=== PATIENT | male | born 1940 | race African-American/Black ===

== ENCOUNTER 2018-12-31 19:31 | Emergency (ER) | payer MEDICARE ==
[~2018-12-31] VITALS: Ht 180.3 cm; Wt 86.4 kg
[2018-12-31 19:40] VITALS: Ht 180.3 cm; Wt 86.4 kg
[2018-12-31] MEDS ORDERED: GLUCOTROL 5 MG T5 MG PO (19:41)
[2018-12-31] MEDS ORDERED: GLUCOPHAGE500 MG PO (19:41)
[2018-12-31] MEDS ORDERED: FUROSEMIDE20 MG PO (19:42)
[2018-12-31] MEDS ORDERED: COZAAR100 MG PO (19:42)
[2018-12-31] MEDS ORDERED: FERROUS SULFAT325 MG PO (19:43)
[2018-12-31] MEDS ORDERED: XARELTO20 MG PO (19:43)
[2018-12-31] MEDS ORDERED: METOPROLOL TART25 MG PO (19:43)
[2018-12-31] MEDS ORDERED: BAYER CHEWABLE81 MG PO (19:43)
[2018-12-31] MEDS ORDERED: VITAMIN D31000 UNIT PO (19:44)
[2018-12-31 21:02] LABS: HEMATOCRIT 25.4 % (42.0-54.0); HEMOGLOBIN 7.9 g/dL (13.5-17.5); MCH 25.6 pg (26.0-34.0); MCHC 31.1 g/dL (31.0-37.0); MCV 82.5 fL (80.0-100.0); MEAN PLATELET VOLUME 9.2 fL (7.4-10.4); PLATELET COUNT 207 10x3/uL (130-400); RBC 3.08 10x6/uL (4.20-6.10); WBC 4.1 10x3/uL (4.8-10.8)
[2018-12-31 21:06] LABS: INR 2.22 (0.85-1.17)
[2018-12-31 21:13] LABS: ALBUMIN 3.7 g/dL (3.4-5.0); ALKALINE PHOSPHATASE 155 U/L (46-116); ALT (SGPT) 52 U/L (10-68); BILIRUBIN - TOTAL 0.31 mg/dL (0.2-1.3); CALC OSMOLALITY 292 mosm/kg (275-300); CALCIUM 9.9 mg/dL (8.5-10.1); CHLORIDE - SERUM 107 mmol/L (98-107); CREATININE - SERUM 1.3 mg/dL (0.6-1.3); GLUCOSE 199 mg/dL (74-106); POTASSIUM - SERUM 3.8 mmol/L (3.5-5.1); PROTEIN - SERUM 6.4 g/dL (6.4-8.2); SODIUM 143 mmol/L (136-145); UREA NITROGEN 17 mg/dL (7-18); eGFR NON AFRICAN AMERICAN 57 mL/min (90-120)
[2018-12-31 21:29] LABS: CKMB 1.8 U/L (0.0-3.6); CREATINE KINASE 138 UL (21-232); PRO BNP 4017 pg/mL (0-450)
[2018-12-31 21:34] LABS: TROPONIN-I 0.061 ng/mL (0.000-0.060)
[2018-12-31 21:36] LABS: EOSINOPHILS 11 % (0-7); LYMPHOCYTES 27 % (15-50); NEUTROPHILS 62 % (40-80); PLATELET ESTIMATE NORMAL
[2019-01-01 00:10] LABS: IRON 35 ug/dl (35-150)
[2019-01-01 00:11] LABS: % SATURATION 11 % (15-55); TOTAL IRON BIND CAPACITY 304 ug/dl (260-445); UNSAT IRON BIND CAPACITY 269 ug/dl (150-375)
[2019-01-01 00:16] VITALS: BP 123/82
[2019-01-01 01:18] LABS: HEMATOCRIT 18.2 % (42.0-54.0); HEMOGLOBIN 5.6 g/dL (13.5-17.5)
== END 2019-01-01 00:50 | disposition other institution (70) ==
LOC: D.ER 19:31
PROVIDERS: Family Medicine
DX: R06.09 Other forms of dyspnea (principal); Z79.01 Long term (current) use of anticoagulants; E11.9 Type 2 diabetes mellitus without complications; Z86.79 Personal history of other diseases of the circulatory system; I10 Essential (primary) hypertension

== ENCOUNTER → 2019-01-11 13:00 | Outpatient (CLI) | payer MEDICARE ==
[2018-12-31 19:40] VITALS: BMI 26.5
[~2019-01-11 13:00] MED LIST: BAYER CHEWABLE81 MG PO; COZAAR100 MG PO; FERROUS SULFAT325 MG PO; FUROSEMIDE20 MG PO; GLUCOPHAGE500 MG PO; GLUCOTROL 5 MG T5 MG PO; METOPROLOL TART25 MG PO; VITAMIN D31000 UNIT PO; XARELTO20 MG PO
--- NOTE | 2019-01-13 08:12 | EC ---
PATIENT:NATY COLIN JR DATE OF SERVICE: 01/11/19 SEX: M MEDICAL RECORD: [id number] DATE OF : 44 LOCATION:[facility], [facility]IN [facility] AGE OF PATIENT: 78 ADMISSION DATE: 01/11/19 REFERRING PHYSICIAN: INTERPRETING PHYSICIAN: FRANCOISE WALLER MD ECHOCARDIOGRAM REPORT ECHO CHARGES 4 ECHO COMPLETE Date: 01/11/19 CLINICAL DIAGNOSIS: HEART MURMUR ECHOCARDIOGRAPHIC MEASUREMENTS (adult normal given) AC root (d.<3.7cm) 4.0 cm LV Septum d (<1.2 cm> 1.8 cm Valve Excursion 2.1 cm LV Septum (systole) 2.0 cm Left Atria (s.<4.0cm> 4.1 cm LVPW d(<1.2cm) 2.0 cm RV (d.<2.3cm) 3.8 cm LVPW (sytole) 2.4 cm LV diastole(<5.6CM) 4.5 cm MV E-F(>70mm/sec) cm LV systole 2.7 cm LVOT Diameter 1.9 cm MV exc.(>10mm) 1.5 cm Est.ejection fraction (50-75%) % DOPPLER: LVIT cm/sec A 53.0 cm/sec E 149 cm/sec LA cm/sec RVSP 45 mmHg LVOT 99 cm/sec AOP1/2T m/s Asc. Ao 116 cm/sec RVOT 93 cm/sec RA cm/sec PA 104 cm/sec AV Gradient Peak 8.49 mmHg AV Mean 4.11 mmHg AV Area 1.9 cm MV Gradient Peak 12.26mmHg MV Mean 3.86 mmHg MV Area cm COMMENTS: [facility] Administrator: 2 HIRO HERNANDEZ Mortgage Operations Manager: 3 Dr. Spencer TAPE# PACS Pericardial Effusion N DATE OF SERVICE: Adequate 2D, color flow imaging, spectral Doppler, and M-mode. LVH is present. LV internal dimension is normal. Wall motion is normal. EF is greater than or equal to 55%. Aortic valve is tricuspid. There is no evidence of stenosis by Doppler interrogation. Left atrium is minimally dilated at 4.1 cm. Mitral valve shows no prolapse. Trace MR. Right-sided chambers grossly normal. Mild TR. ECHOCARDIOGRAM REPORT [id number] NATY COLIN JR TRANSINT:[id number] Voice Confirmation ID: [id number] DOCUMENT ID: [id number] FRANCOISE WALLER MD at 0812 CC: [id number] DICTATION DATE: 01/12/19 1334 SUPERVISOR BUFFING AND PASTING: 01/12/19 2223 DEP CLI 01/11/19 [place] [id number] [place] [id number]
== END | disposition home or self-care (01) ==
LOC: D.HCCECHO 13:00
PROVIDERS: ATTEND Internal Medicine Interventional Cardiology
DX: R01.1 Cardiac murmur, unspecified (principal)

== ENCOUNTER → 2019-01-17 08:26 | Outpatient (CLI) | payer MEDICARE ==
[2018-12-31 19:40] VITALS: BMI 26.5
--- NOTE | 2019-01-25 13:38 | ST ---
PATIENT:NATY COLIN JR MEDICAL RECORD: [id number] SEX: M LOCATION:[facility] ORDER #: ADMISSION DATE: 01/17/19 AGE OF PATIENT: 78 REFERRING PHYSICIAN: INTERPRETING PHYSICIAN: PALMER KIDD MD DATE OF SERVICE: 01/17/2019 PROCEDURE: Nuclear stress test. INDICATION: Angina, hypertension, hyperlipidemia, and diabetes. He was exercised on standard Lexiscan protocol with 27 mCi of sestamibi injected at peak stress, 9 mCi were used previously for rest images. FINDINGS: Gated SPECT reveals a decreased ejection fraction at 40% with mild LV dilatation. SPECT imaging: Cardiolite was used as myocardial perfusion agent. There is reversibility inferiorly and laterally. This includes the basal, mid, apical and inferior segments as well as apical lateral, mid lateral, basal lateral segments. Degree of reversibility inferiorly is moderate, the degree of reversibility laterally is mild. The amount of myocardium involved between defects is large. OVERALL IMPRESSION: This is a high risk nuclear stress test, reversible ischemia inferiorly as well as laterally with decreased ejection fraction 40%, suggestive of multivessel hemodynamically significant coronary artery disease. TRANSINT:[id number] Voice Confirmation ID: [id number] DOCUMENT ID: [id number] PALMER KIDD MD at 1338 CC: [id number] DICTATION DATE: 01/18/19 171 APPLE TURNER: 01/19/19 0055 DEP CLI 01/17/19 [facility] [address] [place] [address]
== END | disposition home or self-care (01) ==
LOC: D.HCCARDIO 08:26
PROVIDERS: ATTEND Internal Medicine Interventional Cardiology
DX: I20.9 Angina pectoris, unspecified (principal)

== ENCOUNTER 2019-02-09 11:19 | Outpatient (CLI) | payer MEDICARE ==
[~2019-02-09] VITALS: Ht 180.3 cm; Wt 85.0 kg
--- NOTE | ~2019-02-09 | HEMODYNAMI ---
PATIENT:NATY COLIN JR MEDICAL RECORD: [id number] : 44 LOCATION:D.CAT ADMISSION DATE: 02/09/19 Generatedon:02/09/201914:48 Patient name: NATY COLIN Patient #: [id number] SSN: [id number] : 1940 Date of study: 02/09/2019 Page: Of Hemodynamic Procedure Report Patient Data Patient Demographics Procedure consent was obtained First Name: NATY Gender: Male Last Name: DIXIE Suffix: [facility] Initial: ESTELITA : 1940 Patient #: [id number] Age: 78 year(s) Race: Black SSN: [id number] Additional ID: [id number] Contact details Address: [address] [place] [address] [address] State: [place] City: [place] Zip code: [address] Past Medical History Allergies: No known allergies Admission Admission Data Admission Date: 02/09/2019 Admission Time: 11:19 Arrival Date: 02/09/2019 Arrival Time: 0:00 Admit Source: Other Insurance Payor: Medicare [facility] #: [id number] Height (in.): 71 BSA: 2.04 (m2) Height (cm.): 180.34 BMI: 25.66 (kg/m2) Weight (lbs.): 184 Weight (kg.): 83.46 Lab Results Lab Result Date: 02/09/2019 Lab Result Time: 0:00 Biochemistry Name Units Result Min Max BUN mg/dl 15 --(--*-)-- 7 18 Creatinine mg/dl 1.1 --(--*-)-- 0.6 1.3 eGFR ml/min 84 -*(----)-- 90 120 AM CBC Name Units Result Min Max Hematocrit % 32.7 *-(----)-- 42 54 Hemoglobin g/dl 10 *-(----)-- 13.5 17.5 Procedure Procedure Types Cath Procedure Diagnostic Procedure C LHC w/Coronaries Sedation Charges Moderate Sedation up to 30 minutes PCI Procedure Coronary Stent Coronary Stent Initial Procedure Description Procedure Date Procedure Date: 02/09/2019 Procedure Start Time: 14:08 Procedure End Time: 14:42 Procedure Staff Name Function Juan David Ireland MD Performing Physician Bebe Maldonado RT Monitor Karen Brito RT Monitor Jennifer Duggan RN Nurse Yuri Haskins RT Scrub Kira Singh RT Scrub Indication Angina Procedure Data Cath Procedure Fluoroscopy Diagnostic fluoroscopy Total fluoroscopy Time: 6.6 time: 6.6 min min Diagnostic fluoroscopy Total fluoroscopy dose: 770 dose: 770 mGy mGy Contrast Material Contrast Material Type Amount (ml) Isovue 300 106 Entry Location Entry Primary Successful Side Size Upsize Upsize Entry Closure Succes sful Closure Location (Fr) 1 (Fr) 2 (Fr) Remarks Device Remarks Radial Right 6 Fr artery Short Femoral Right 5 Fr 6 Fr Exoseal artery Short Estimated blood loss: 10 ml Diagnostic catheters Device Type Used For End Catheter Placement DIAGNOSTIC [place] 110cm 5 Procedure Fr catheter ([id number]) MULTIPACK JL 4.0 5Fr Procedure catheter MULTIPACK 3DRC 5Fr Procedure catheter MULTIPACK Pigtail 5 Fr Procedure catheter Procedure Complications No complications Procedure Medications Medication Administration Route Dosage Oxygen etCO2 Nasal cannula 2 l/min Lidocaine 2% added to field 20 Heparin Flush Bag added to field 2 bags (1000units/500ml NS) 0.9% NaCl I.V. 100 ml/hr Versed I.V. 1 mg Fentanyl I.V. 50 mcg Radial Cocktail I.A. 1 syringe (Verapamil 2mg/Nitro 400mcg/Heparin 1500units) Versed I.V. 1 mg Fentanyl I.V. 50 mcg Versed I.V. 1 mg Heparin Bolus I.V. 4000 units Integrilin (Bolus I.V. 7.9 ml 2mg/ml) Plavix P.O. 600 mg Hemodynamics Rest BSA: 2.04 (m2) HGB: 10 (g/dl) O2 Consumption: Estimated: 242.34 (ml/min) O2 Cons umption indexed: Estimated:118.79 (ml/min/m) Heart Rate: 81 (bpm) Pressure Samples Time Site Value (mmHg) Purpose Heart Use Rate(bpm) 14:22 LV 112/15,28 Snapshot 77 Gradients Valve Time Site Site Mean SEP/DFP Peak To Heart Use 1 2 (mmHg) (sec/min) Peak Rate (mmHg) (bpm) Aortic 14:23 LV AO 77 Snapshots Pre Cath Intra NCS Post Cath Vital Signs Time Heart Resp SPO2 etCO2 NIBP (mmHg) Rhythm Pain Sedation Rate (ipm) (%) (mmHg) Status Level (bpm) 13:55:48 79 17 100 0 130/81(105) NSR 0 (11) 10(A) , No pain 13:59:59 80 13 97 0 121/78(93) NSR 0 (11) 10(A) , No pain 14:04:12 78 12 98 0 123/77(102) NSR 0 (11) 10(A) , No pain 14:08:21 79 14 97 0 134/85(102) NSR 0 (11) 9(A) , No pain 14:12:33 79 12 97 0 127/74(91) NSR 0 (11) 9(A) , No pain 14:16:41 79 12 97 0 114/77(94) NSR 0 (11) 9(A) , No pain 14:20:53 77 13 97 0 113/69(91) NSR 0 (11) 9(A) , No pain 14:25:01 78 13 98 0 111/75(90) NSR 0 (11) 9(A) , No pain 14:29:11 77 13 98 0 113/72(97) NSR 0 (11) 9(A) , No pain 14:33:21 77 14 98 0 115/71(90) NSR 0 (11) 9(A) , No pain 14:37:30 75 14 99 0 112/69(89) NSR 0 (11) 10(A) , No pain 14:41:38 77 13 98 0 112/76(91) NSR 0 (11) 9(A) , No pain Medications Time Medication Route Dose Verified Delivered Reason Not es Effectiveness by by 14:01:04 Oxygen etCO2 2 l/min Juan David Rodriguez [facility]ula 14:01:10 Lidocaine 2% added 20ml Juan David Fall for local to vial [facility] anesthetic field MD PORTER 14:01:19 Heparin Flush added 2 bags Juan David Fall used for Bag to [facility] procedure (1000units/500ml field MD PORTER NS) 14:01:28 0.9% NaCl I.V. 100 Juan David Rodriguez Per physician ml/hr St Gael Duggan RN, MD 14:03:28 Versed I.V. 1 mg Juan David Rodriguez for sedation St Gael Duggan RN, MD 14:03:33 Fentanyl I.V. 50 mcg Juan David Rodriguez for sedation St Gael Duggan RN, MD 14:08:28 Versed I.V. 1 mg Juan David Rodriguez for sedation St Gael Duggan RN, MD 14:08:32 Fentanyl I.V. 50 mcg Juan David Rodriguez for sedation St Gael Duggan RN, MD 14:10:23 Radial Cocktail I.A. 1 Juan David Fangie for (Verapamil syringe St Gael Duggan RN vasodilation 2mg/Nitro MD 400mcg/Heparin 1500units) 14:11:47 Versed I.V. 1 mg Juan David Rodriguez for sedation St Gael Duggan RN, MD 14:25:25 Heparin Bolus I.V. 4000 Juan David Rodriguez for isabelle ified units St Gael Duggan RN anticoagulation with dr MD muniz 14:26:42 Integrilin I.V. 7.9 ml Juan David Rodriguez for was mellisa (Bolus 2mg/ml) St Gael Duggan RN antiplatelet 2.1 mls therapy of vial 14:39:19 Plavix P.O. 600 mg Juan David Rodriguez for St Gael Duggan RN antiplatelet therapy Procedure Log Time Note 13:36:49 Jennifer Duggan RN sent for patient. Start room use. 13:36:55 Procedure Status Elective Heart Cath (OP). 13:36:58 Time tracking: Regular hours (M-F 7:00 - 5:00) 13:37:03 Plan of Care:Hemodynamics will remain stable., Cardiac rhythm will remain stable., Comfort level will be maintained., Respiratory function will remain adequate., Patient/ family verbilizes understanding of procedure., Procedure tolerated without complication., Recovers from procedure without complications.. 13:37:09 Signed procedure consent form obtained from patient. 13:37:31 H&P Date Dictated: 02/03/2019 Within 30 days and on chart., H&P Addendum completed by physician on day of procedure. (MUST COMPLETE FOR ALL OUTPATIENTS). 13:37:46 Patient allergic to No known allergies 13:42:10 ACCPatient has been prescribed/administered the following anti-anginal medication within the last 2 weeks: Beta Brisa 13:42:17 ACC Patient presents with Stable Angina CCS Anginal Class 3--Marked limitation of physical activity, angina occurs with ordinary activity.. 13:42:42 Patient Height : 71 inches 13:42:46 Patient Weight : 184 lbs 13:42:53 Insurance Payor : Medicare 13:42:55 Arrival Date: 02/09/2019 12:00:00 AM 13:43:09 Admit Source: Other 13:43:22 Diagnostic Cath Status : Elective 13:43:48 Indication : Angina 13:44:37 Patient received from Pre/Post Procedure Room to CCL 1 Alert and oriented. Tansferred to table in Supine position. 13:44:39 Warm blankets applied, and adriana hugger turned on for patient comfort. 13:44:39 Correct patient and procedure confirmed by team. 13:44:42 ECG and BP/O2 sat monitors applied to patient. 13:54:41 Vital chart was started 13:54:43 Baseline sample Acquired. 13:54:50 Rhythm: sinus rhythm 13:54:52 Full Disclosure recording started 13:54:56 Pre-procedure instructions explained to patient. 13:54:59 Pre-op teaching completed and patient verbalized understanding. 13:55:06 Family in waiting room. 13:55:09 Patient NPO since Midnight. 13:55:13 Is the patient allergic to Iodine/contrast media? No. 13:55:18 Is patient on blood thinner?Yes 13:55:25 ACC The patient was administered the following blood thiners within the last 24 hours: Xarelto 13:56:04 Patient diabetic? Yes. 13:56:14 If on Metformin: Last Dose? 02/07/2019 13:56:17 If diabetic: On Metformin? Yes 13:56:24 Previous problem with sedation/anesthesia? No ? 13:56:28 Snore? Yes 13:56:35 Sleep apnea? No 13:56:37 Deviated septum? No 13:56:39 Opens mouth fully? Yes 13:56:41 Sticks out tongue? Yes 13:56:49 Airway obstruction? Yes asthma 13:56:55 Dentures? No ? 13:57:56 Pre procedure: right dorsailis pedis pulse 2+ Normal; easily identifiable; not easily obliterated 13:58:07 Modified Angel's test Ulnar < 7 seconds 13:58:13 Patient pain scale 0/10 ?. 13:58:29 IV patent on arrival in right antecubital with 0.9% NaCl at [facility]. 14:00:07 Lab Result : BUN 15 mg/dl 14:00:08 Lab Result : Creatinine 1.1 mg/dl 14:00:08 Lab Result : Hemoglobin 10 g/dl 14:00:08 Lab Result : eGFR AM 84 ml/min 14:00:08 Lab Result : Hematocrit 32.7 % 14:00:10 Lab results completed and on chart. 14:00:14 Right Radial & Right Groin area was prepped with chlora-prep and draped in sterile fashion 14:00:16 Alarms reviewed by R. N. 14:00:16 Sharps counted by scrub and verified by R.N. 14:00:33 Use device set Radial Dx or PCI 14:00:40 ACIST Syringe (14139) opened to sterile field. 14:00:41 Medline Cath Pack ([id number]) opened to sterile field. 14:00:42 Bag Decanter (2002S) opened to sterile field. 14:00:43 ACIST Hand Control (74925) opened to sterile field. 14:00:44 ACIST Manifold (16947) opened to sterile field. 14:00:45 Tegaderm 4 x 4 (1626W) opened to sterile field. 14:00:49 MBrace Wrist Support ([id number]) opened to sterile field. 14:00:52 EMERALD Guide Wire (291-989) opened to sterile field. 14:00:54 SHEATH 6FR RAIN (3160027) opened to sterile field. 14:01:04 Oxygen 2 l/min etCO2 Nasal cannula was administered by Jennifer Duggan RN; used for procedure; Verbal order read back and verified. 14:01:10 Lidocaine 2% 20ml vial added to field was administered by Juan David Ireland MD; for local anesthetic; Verbal order read back and verified. 14:01:19 Heparin Flush Bag (1000units/500ml NS) 2 bags added to field was administered by Juan David Ireland MD; used for procedure; Verbal order read back and verified. 14:01:28 0.9% NaCl 100 ml/hr I.V. was administered by Jennifer Duggan RN; Per physician; Verbal order read back and verified. 14:02:29 Baseline sample Acquired. 14:02:42 --------ALL STOP TIME OUT------ 14:02:43 Final Timeout: patient, procedure, and site verified with staff and physician. All members of the team are in agreement. 14:02:50 Right Radial & Right Groin site verified by team. 14:02:59 Fire Safety Assessment: A--An alcohol-based skin anteseptic being used preoperatively., C--Open oxygen or nitrous oxide is being used., D--An ESU, laser, or fiber-optic light is being used. 14:03:11 Physical assessment completed. ASA score P 2 - A patient with mild systemic disease as per Juan David Ireland MD. 14:03:17 2) 60-89 Mildly reduced kidney function, and other findings (as for stage 1) point to kidney disease. 14:03:22 Maximum allowable contrast dose (3.7 X eGFR X 0.75)236 ml. 14:03:28 Versed 1 mg I.V. was administered by Jennifer Duggan RN; for sedation; Verbal order read back and verified. 14:03:30 Sedation plan: IV Moderate Sedation Medication:Versed, Fentanyl 14:03:33 Fentanyl 50 mcg I.V. was administered by Jennifer Duggan RN; for sedation; Verbal order read back and verified. 14:08:08 Procedure started. 14:08:20 Local anesthetic to right radial artery with Lidocaine 2% by Juan David Ireland MD.INITIAL ACCESS ONLY 14:08:28 Versed 1 mg I.V. was administered by Jennifer Duggan RN; for sedation; Verbal order read back and verified. 14:08:32 Fentanyl 50 mcg I.V. was administered by Jennifer Duggan RN; for sedation; Verbal order read back and verified. 14:08:53 A 6 Fr Short sheath was inserted into the Right Radial artery 14:09:05 Zero performed for pressure channel P1 14:09:10 Zero performed for pressure channel P1 14:09:41 A DIAGNOSTIC [place] 110cm 5 Fr catheter (514453) was advanced over the wire and used for Procedure. 14:09:45 Zero performed for pressure channel P1 14:10:23 Radial Cocktail (Verapamil 2mg/Nitro 400mcg/Heparin 1500units) 1 syringe I.A. was administered by Buffie Duggan RN; for vasodilation; Verbal order read back and verified. 14:11:47 Versed 1 mg I.V. was administered by Jennifer Duggan RN; for sedation; Verbal order read back and verified. 14:12:54 GLIDE WIRE ANGLE 260cm (JV8196) opened to sterile field. 14:13:16 Mascot wire used to advance catheter 14:14:30 Unable to go radial. Proceed with groin 14:15:04 SHEATH 5FR [place] (IAP285) opened to sterile field. 14:15:14 Use device set Multipack Set 14:15:20 DIAGNOSTIC Multipack 5Fr catheter set ([id number]) opened to sterile field. 14:15:35 Local anesthetic to right femoral artery with Lidocaine 2% by Juan David Ireland MD.ADDITIONAL ACCESS 14:16:18 A 5 Fr sheath was inserted into the Right Femoral artery 14:17:11 A MULTIPACK JL 4.0 5Fr catheter was advanced over the wire and used for Procedure. 14:18:42 LCA angiography performed. 14:19:18 Catheter removed. 14:19:26 A MULTIPACK 3DRC 5Fr catheter was advanced over the wire and used for Procedure. 14:21:02 RCA angiography performed. 14:21:06 Catheter removed. 14:21:16 A MULTIPACK Pigtail 5 Fr catheter was advanced over the wire and used for Procedure. 14:22:01 LV gram done using POPE 14:22:08 Injector settings: Ml/sec: 10, Volume: 20, 14:22:34 LV hemodynamics recorded. 14:22:57 EF : 55 % 14:23:47 SHEATH 6FR [place] (SJA028) opened to sterile field. 14:23:48 WHISPER 300cm guide wire ([id number]) opened to sterile field. 14:23:49 INFLATOR Merit BasixCompak (OB0536) opened to sterile field. 14:23:50 GUIDE 6FR XBLAD 3.5 catheter ([id number]) opened to sterile field. 14:24:20 Sheath upsized to a 6 Fr Short. 14:24:48 6 Fr xblad 3.5 guide catheter was inserted over the wire 14:25:25 Heparin Bolus 4000 units I.V. was administered by Jennifer Duggan RN; for anticoagulation; verified with dr muniz Verbal order read back and verified. 14:25:54 Guide Catheter removed. unable to cannulate vessel. 14:26:11 GUIDE 6FR JL 4.0 catheter (FB3OT62) opened to sterile field. 14:26:36 6 Fr JL4 guide catheter was inserted over the wire 14:26:42 Integrilin (Bolus 2mg/ml) 7.9 ml I.V. was administered by Jennifer Duggan RN; for antiplatelet therapy; wasted 2.1 mls of vial Verbal order read back and verified. 14:27:11 Guide Catheter removed. unable to cannulate vessel. 14:27:31 GUIDE 6FR XBLAD 4.0 catheter ([id number]) opened to sterile field. 14:27:50 6 Fr xblad 4 guide catheter was inserted over the wire 14:30:18 Pre PCI Site: [place] mLAD has 80% stenosis. 14:30:53 whisper 300 wire advanced. 14:32:20 Wire advanced across lesion. 14:34:47 Place stent Inflation Number: 1 A CRISTY RX 3.5 x 18 stent ([id number]) was prepped and advanced across the Mid LAD . The stent was deployed at 14 GEMMA for 0:15 (min:sec) . 14:35:18 Stent catheter was removed intact over wire. 14:35:26 Wire removed. 14:35:27 Guide catheter removed. 14:35:48 EXOSEAL 6Fr (EX600) opened to sterile field. 14:35:50 ZEPHYR REGULAR TR BAND (083620) opened to sterile field. 14:36:14 Sheath removed intact; hemostasis achieved with Exoseal to the Right Femoral artery. 14:36:18 Procedure ended.(Physican Out) 14:36:37 Fluoroscopy time 06.60 minutes. 14:36:42 Fluoroscopy dose: 770 mGy 14:36:42 Flurop Dose total: 770 14:36:47 Dose Area Product 99844 mGy/cm. 14:36:51 Contrast amount:Isovue 300 106ml. 14:36:54 Maximum allowable dose exceeded? No. 14:36:56 Sharps counted by scrub and verified by R.N. 14:37:14 Post-op/insertion site Right Femoral artery dressed using a 4 x 4 and Tegaderm. 14:37:51 Calvert band inflated with 10cc of air. 14:38:11 Post-procedure physical assessment completed. ASA score P 2 - A patient with mild systemic disease as per Juan David Ireland MD. 14:38:16 Post procedure rhythm: unchanged. 14:38:20 Estimated blood loss: 10 ml 14:38:22 Post procedure instruction explained to patient.Patient verbalizes understanding. 14:38:24 Patient needs reinforcement of post procedure teaching. 14:39:19 Plavix 600 mg P.O. was administered by Jennifer Duggan RN; for antiplatelet therapy; Verbal order read back and verified. 14:39:54 Procedure type changed to Cath procedure, Diagnostic procedure, LHC, LHC w/Coronaries, Sedation Charges, Moderate Sedation up to 30 minutes, PCI procedure, Coronary Stent, Coronary Stent Initial 14:42:25 Procedure and supply charges have been captured, reviewed, submitted and are correct. 14:42:34 Procedure Complication : No complications 14:42:37 Vital chart was stopped 14:42:40 Operative report dictated upon procedure completion. 14:42:41 See physician's report for complete and final results. 14:42:44 Report given to Pre/Post Procedure Room. 14:42:50 Patient transfered to Pre/Post Procedure Room with Stretcher. 14:42:55 Procedure ended. 14:42:55 Full Disclosure recording stopped 14:43:04 ACC-PCI Only Patient was given prescriptions, or instructed by Juan David Ireland MD to start/continue the following medications upon discharge: Plavix 14:43:06 End room use (Document Last) Intervention Summary Intervention Notes Time ActionType Lesion and Equipment Used Action# Pressure Duration Attributes 14:34:47 Place stent Mid LAD CRISTY RX 3.5 x 1 14 00:15 18 stent ([id number]) Device Usage Item Name Manufacture Quantity Catalog Hospital Part Current [facility] Lot# / Number Charge Number Stock Stock Serial# Code ACIST Syringe Acist 1 88547 158524 483244 191808 20 (50867) Medical Systems Inc Medline Cath Medline 1 [id number] 651375 55965 874525 5 Pack ([id number]) Bag Decanter Microtek 1 2001S 535462 09147 237977 5 () Medical Inc. ACIST Hand Acist 1 78253 264689 874138 856242 5 Control Medical (02359) Systems Inc ACIST Manifold Acist 1 91668 953043 305732 090090 5 (25843) Medical Systems Inc Tegaderm 4 x 4 3M 1 1626W 696282 596581 023734 5 (1626W) MBrace Wrist Advanced 1 140-0250-00 504538 42934 934154 5 Support Vascular ([id number]) Dynamics EMERALD Guide Cardinal 1 502-455 522472 497544 877711 5 Wire (502-455) Health SHEATH 6FR Cardinal 1 3261232 360943 9468535 458997 5 RAIN (1847486) Health DIAGNOSTIC Terumo 1 40-5013 079765 723518 123057 5 [place] 110cm 5 Fr catheter (746330) GLIDE WIRE Terumo 1 KK0263 464332 772093 345851 5 ANGLE 260cm (IX7508) SHEATH 5FR Terumo 1 JLE070 503767 384341 502263 5 [place] (QNP856) DIAGNOSTIC Cardinal 1 JV1917 127273 27818 335992 30 Multipack 5Fr Health catheter set (VO1410) MULTIPACK JL Cardinal 1 690038 5 4.0 5Fr Health catheter MULTIPACK 3DRC Cardinal 1 085893 5 5Fr catheter Health MULTIPACK Cardinal 1 828960 5 Pigtail 5 Fr Health catheter SHEATH 6FR Terumo 1 NYD316 312657 333045 990412 40 [place] (MEB604) WHISPER 300cm [place] 1 [id number] 435791 381616 261237 5 guide wire Vascular (1491585AP) INFLATOR Merit Merit 1 [id number] 498306 473532 441995 15 [employer]ndAllon [employer] Medical (MS1521) GUIDE 6FR Cardinal 1 [id number] 235029 745172 461286 10 XBLAD 3.5 Health catheter (60191825) GUIDE 6FR JL Medtronic 1 [id number] 757666 56428 598763 1 4.0 catheter (JZ8JR85) GUIDE 6FR Cardinal 1 93006912 640293 238863 115900 3 XBLAD 4.0 Health catheter (54855156) CRISTY RX 3.5 x Medtronic 1 [id number] 244204 5655886 846104 5 [id number] 18 stent ([id number]) EXOSEAL 6Fr Cardinal 1 EX600 811496 371447 154796 10 (EX600) Health ZEPHYR REGULAR Cardinal 1 259507 874504 3899805 817296 5 TR [facility] [employer] (148636) Signature Audit [place] Stage Time Signature Unsigned Intra-Procedure 02/09/2019 Karen Brito 2:47:23 PM RT(R) Intra-Procedure 02/09/2019 Jennifer Duggan RN 2:47:45 PM Intra-Procedure 02/09/2019 Juan David De La Paz 2:48:03 PM Gael P[place] [id number] [place] [address]
[2019-02-09 12:13] VITALS: BP 133/75; Ht 180.3 cm; Wt 85.0 kg
[2019-02-09 12:25] LABS: EOSINOPHILS 3.7 % (0-7); HEMATOCRIT 32.7 % (42.0-54.0); LYMPHOCYTES 25.9 % (15-50); MCH 26.7 pg (26.0-34.0); MCHC 30.6 g/dL (31.0-37.0); MCV 87.2 fL (80.0-100.0); MEAN PLATELET VOLUME 9.9 fL (7.4-10.4); MONOCYTES 6.8 % (2-11); NEUTROPHILS 62.6 % (40-80); PLATELET COUNT 191 10x3/uL (130-400); RBC 3.75 10x6/uL (4.20-6.10); RDW 17.8 % (11.5-14.5); WBC 4.9 10x3/uL (4.8-10.8)
[2019-02-09 12:34] LABS: ANION GAP 11.8 mmol/L (8-16); CALCIUM 9.6 mg/dL (8.5-10.1); CARBON DIOXIDE 27.3 mmol/L (21.0-32.0); CHOL - HDL RATIO 3.9 ratio (2.3-4.9); CREATININE - SERUM 1.1 mg/dL (0.6-1.3); LDL-HDL RATIO 2.7 ratio (1.5-3.5); POTASSIUM - SERUM 4.1 mmol/L (3.5-5.1)
--- NOTE | 2019-02-09 15:07 | NUR ---
PT ARRIVED BY STRETCHER. PLACED ON MONITORS. ASSESSMENT COMPLETED. FAMILY AT BEDSIDE.
[2019-02-09] MEDS ORDERED: PLAVIX75 MG PO (15:14)
--- NOTE | 2019-02-09 15:26 | NUR ---
PT RESTING COMFORTABLY. VSS. RIGHT GROIN DRESSING C/D/I. NO S/S OF HEMATOMA NOTED. RIGHT RADIAL Z BAND IN PLACE. NO BLEEDING/HEMATOMA NOTED. CALL. LIGHT WITHIN REACH. FAMILY AT BEDSIDE.
--- NOTE | 2019-02-09 15:55 | NUR ---
PT RESTING COMFORTABLY. VSS. RIGHT GROIN DRESSING C/D/I. NO S/S OF HEMATOMA NOTED. CALL LIGHT WITHIN REACH. RIGHT WRIST Z BAND IN PLACE. NO BLEEDING/HEMATOMA NOTED.
--- NOTE | 2019-02-09 16:30 | NUR ---
RIGHT GROIN DRESSING C/D/I. NO S/S OF HEMATOMA NOTED. CALL LIGHT WITHIN REACH. RIGHT RADIAL Z BAND IN PLACE. NO BLEEDING/HEMATOMA NOTED. CALL LIGHT WITHIN REACH. VSS. PT RESTING COMFORTABLY. NO NEEDS AT THIS TIME.
--- NOTE | 2019-02-09 17:00 | NUR ---
PT RESTING COMFORTABLY. VSS. RIGHT WRIST Z BAND IN PLACE. NO BLEEDING/HEMATOMA NOTED. RIGHT GROIN DRESSING C/D/I. NO S/S OF HEMATOMA NOTED. FAMILY AT BEDSIDE. CALL LIGHT WITHIN REACH.
--- NOTE | 2019-02-09 17:45 | NUR ---
1cc OF AIR REMOVED FROM Z BAND. NO BLEEDING/HEMATOMA NOTED. RIGHT GROIN DRESSING C/D/I. HEAD OF BED INC TO 30 DEGREES. TOLERATED WELL. SET UP WITH SANDWICH TRAY AND DRINK. DENIES NAUSEA/PAIN AT THIS TIME.
--- NOTE | 2019-02-09 18:00 | NUR ---
2cc OF AIR REMOVED FROM Z BAND. NO BLEEDING/HEMATOMA NOTED. TOLERATING WELL.
--- NOTE | 2019-02-09 18:15 | NUR ---
3cc OF AIR REMOVED FROM Z BAND. NO BLEEDING/HEMATOMA NOTED.
--- NOTE | 2019-02-09 18:30 | NUR ---
3cc OF AIR REMOVED FROM Z BAND. NO BLEEDING/HEMATOMA NOTED. PIV D/C'D WITH CATH TIP INTACT. TOLERATING WELL. RIGHT GROIN DRESSING C/D/I. NO S/S OF HEMATOMA NOTED. Z BAND REMOVED AND DRESSING APPLIED. PT INSTRUCTED TO GET UP AND DRESSED AT THIS TIME. FAMILY AT BEDSIDE TO ASSIST. CALL LIGHT WITHIN REACH.
--- NOTE | 2019-02-09 18:40 | NUR ---
DISCUSSED DISCHARGE INSTRUCTIONS WITH PT AND PT'S SIGNIFICANT OTHER. THEY VOICED UNDERSTANDING. PT DID NOT WANT TO SIGN PAPERWORK, HE ASKED THAT HIS SIGNIFICANT OTHER SIGN FOR HIM.
--- NOTE | 2019-02-09 18:50 | NUR ---
RIGHT WRIST DRESSING AND RIGHT GROIN DRESSING C/D/I. NO S/S OF HEMATOMA NOTED. PT TAKEN OUT TO VEHICLE BY WHEELCHAIR. NO S/S OF DISTRESS NOTED. ALL BELONGINGS AND PAPERWORK IN HAND.
--- NOTE | 2019-02-10 10:14 | OP ---
PATIENT NAME: NATY COLIN JR MEDICAL RECORD: [id number] :44 LOCATION:D.CAT ADMISSION DATE: SURGEON: FRANCOISE WALLER MD DATE OF OPERATION: 02/09/2019 PROCEDURES: Left heart catheterization, selective coronary angiography, and right femoral artery approach. CATHETERS: A 5-[place] sheath, 5/4 left and right Julia, 5/4 pig. The procedure was well tolerated. The patient was returned to the love. Sheath was removed. ExoSeal device was placed. FINDINGS: Left ventriculography in 30-degree POPE view: Normal wall motion and normal systolic function. CORONARY ANATOMY: LEFT MAIN: Left main is free of disease. LAD: Has got an 80% elongated, diffuse stenosis, typical of diabetic disease, correlating nicely with nuclear study. CIRCUMFLEX: Free of disease. RIGHT CORONARY ARTERY: Somewhat codominant system, free of disease. 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 PLAN: Intervention momentarily. DESCRIPTION OF PROCEDURE: A 5-[place]ian sheath was exchanged for a 6-[place]anaian sheath, XB LAD guide catheter provided good guide catheter support, followed by 300 cm Whisper wire, stent deployed was a 3.5 x 18 mm [place] drug-eluting stent up to 14 atmospheres. Final angiography showed excellent resolution of an 80% stenosis, no significant residual. RADHA flow was 3 throughout the procedure. Heparin and Integrilin were used during the case. Sheath was closed with ExoSeal device. Plavix was loaded in the lab. TRANSINT:[id number] Voice Confirmation ID: [id number] DOCUMENT ID: [id number] FRANCOISE WALLER MD at 1014 CC: [id number] DICTATION DATE: 02/09/19 1455 DIESEL LOCOMOTIVE FIRER/FIREMAN: 02/09/19 2228 DEP CLI 02/09/19 [facility] [address] [id number]
== END 2019-02-09 18:50 | disposition home or self-care (01) ==
LOC: D.CATH 11:19
PROVIDERS: ATTEND Internal Medicine Interventional Cardiology
DX: R94.30 Abnormal result of cardiovascular function study, unspecified (principal); I20.0 Unstable angina; R06.02 Shortness of breath; E11.9 Type 2 diabetes mellitus without complications; I10 Essential (primary) hypertension
CPT/HCPCS: C9600; 93458

== ENCOUNTER 2019-09-12 10:50 | Inpatient (IN) | payer MEDICARE ==
[~2019-09-12] VITALS: Ht 180.3 cm; Wt 91.6 kg
--- NOTE | ~2019-09-12 | HEMODYNAMI ---
PATIENT:NATY COLIN JR MEDICAL RECORD: [id number] : 44 LOCATION:[facility] D.2102 ADMISSION DATE: 09/12/19 Generatedon:09/19/201916:47 Patient name: NATY COLIN Patient #: [id number] SSN: [id number] : 1940 Date of study: 09/19/2019 Page: Of Hemodynamic Procedure Report Patient Data Patient Demographics Procedure consent was obtained First Name: NATY Gender: Male Last Name: DIXIE Suffix: Jr Mendez Initial: ESTELITA : 1940 Patient #: [id number] Age: 79 year(s) Race: Black SSN: [id number] Additional ID: [id number] Contact details Address: [address] [place] [address] [address] State: [place] City: [place] Zip code: [address] Past Medical History Performed procedures and imaging results Date Procedure Procedure Results Comments 09/12/2019 Stress testing Positive->Intermediate with SPECT MPI risk Allergies Allergen Reaction Date Comments Reported Other allergy 09/19/2019 iodine Admission Admission Data Admission Date: 09/12/2019 Admission Time: 10:50 Arrival Date: 09/19/2019 Arrival Time: 0:00 Admit Source: Other Insurance Payor: Medicare Room #: D.2102 [facility] #: [id number] Height (in.): 71 BSA: 2.19 (m2) Height (cm.): 180.34 BMI: 30.43 (kg/m2) Weight (lbs.): 218.15 Weight (kg.): 98.95 Lab Results Lab Result Date: 09/19/2019 Lab Result Time: 0:00 Biochemistry Name Units Result Min Max BUN mg/dl 20 --(----)*- 7 18 Creatinine mg/dl 1.3 --(---*)-- 0.6 1.3 eGFR ml/min 57 *-(----)-- 90 120 NONAFRICAN CBC Name Units Result Min Max Hematocrit % 28.2 *-(----)-- 42 54 Hemoglobin g/dl 8.8 *-(----)-- 13.5 17.5 Procedure Procedure Types Cath Procedure Diagnostic Procedure [facility] w/Coronaries Sedation Charges Moderate Sedation up to 15 minutes PCI Procedure Coronary Stent Coronary Stent Initial Hemochron ACT Test Procedure Description Procedure Date Procedure Date: 09/19/2019 Procedure Start Time: 16:21 Procedure End Time: 16:44 Procedure Staff Name Function Lawrence Neri MD Performing Physician Kira Singh RT Monitor Gabriela Velazquez RN Nurse Humaira Etienne RT Scrub Procedure Data Cath Procedure Fluoroscopy Diagnostic fluoroscopy Total fluoroscopy Time: 3.6 time: 3.6 min min Diagnostic fluoroscopy Total fluoroscopy dose: 867 dose: 867 mGy mGy Contrast Material Contrast Material Type Amount (ml) Isovue 300 95 Entry Location Entry Primary Successful Side Size Upsize Upsize Entry Closure Succes sful Closure Location (Fr) 1 (Fr) 2 (Fr) Remarks Device Remarks Femoral Right 6 Fr 6 Fr Exoseal artery Short Short Estimated blood loss: 10 ml Diagnostic catheters Device Type Used For End Catheter Placement MULTIPACK JL 4.0 5Fr Left Coronary catheter Angiography MULTIPACK 3DRC 5Fr Right Coronary catheter Angiography MULTIPACK Pigtail 5 Fr LV Angiography catheter Procedure Complications No complications Procedure Medications Medication Administration Route Dosage Oxygen etCO2 Nasal cannula 2 l/min Lidocaine 2% added to field 20 Heparin Flush Bag added to field 2 bags (1000units/500ml NS) 0.9% NaCl I.V. 100 ml/hr Versed I.V. 1 mg Fentanyl I.V. 50 mcg Versed I.V. 1 mg Fentanyl I.V. 50 mcg Heparin Bolus I.V. 9000 units Plavix P.O. 600 mg Hemodynamics Rest BSA: 2.19 (m2) HGB: 8.8 (g/dl) O2 Consumption: Estimated: 273.13 (ml/min) O2 Con sumption indexed: Estimated:124.72 (ml/min/m) Heart Rate: 97 (bpm) Pressure Samples Time Site Value (mmHg) Purpose Heart Use Rate(bpm) 16:29 LV 129/14,29 Snapshot 94 16:30 AO 119/62(88) Pullback 94 16:30 LV 106/14,22 Pullback 94 Gradients Valve Time Site 1 Site 2 Mean SEP/DFP Peak To Heart Use (mmHg) (sec/min) Peak Rate (mmHg) (bpm) Aortic 16:30 LV AO 0 4 0 94 106/14,22 119/62(88) Calculations Valve P-P Mean Valve Index Valve Source Name Gradient Area Flow (cm2) Aortic 0 0 0 0 Snapshots Pre Cath Intra NCS Post Cath Vital Signs Time Heart Resp SPO2 etCO2 NIBP (mmHg) Rhythm Pain Sedation Rate (ipm) (%) (mmHg) Status Level (bpm) 16:02:35 97 17 99 0 137/79(103) NSR 0 (11) 10(A) , No pain 16:06:45 93 17 98 0 125/77(96) NSR 0 (11) 10(A) , No pain 16:11:24 96 15 96 0 126/77(92) NSR 0 (11) 10(A) , No pain 16:15:29 94 15 98 0 128/75(93) NSR 0 (11) 10(A) , No pain 16:19:35 93 15 99 0 123/77(87) NSR 0 (11) 10(A) , No pain 16:23:41 93 15 99 0 130/74(94) NSR 0 (11) 10(A) , No pain 16:27:49 92 15 99 0 123/72(94) NSR 0 (11) 10(A) , No pain 16:31:55 93 15 99 0 120/72(95) NSR 0 (11) 10(A) , No pain 16:36:01 94 14 99 0 121/72(86) NSR 0 (11) 10(A) , No pain 16:40:08 93 16 100 0 117/68(80) NSR 0 (11) 10(A) , No pain 16:44:12 97 11 0 122/72(86) NSR 0 (11) 10(A) , No pain Medications Time Medication Route Dose Verified Delivered Reason Notes Effectiveness by by 16:09:08 Oxygen etCO2 2 Lawrence Buffie used for Nasal l/min Daron Duggan logistics program manager cannula 16:09:14 Lidocaine 2% added 20ml Lawrence Lawrence for local to vial Daron Neri MD anesthetic field 16:09:20 Heparin Flush added 2 Lawrence Lawrence used for Bag to bags Daron Neri MD procedure (1000units/500ml field NS) 16:09:29 0.9% NaCl I.V. 100 Lawrence Buffie Per physician ml/hr Daron Duggan RN 16:15:29 Versed I.V. 1 mg Lawrence Buffie for sedation Daron Duggan RN 16:15:33 Fentanyl I.V. 50 Lawrence Buffie for sedation mcg Daron Duggan RN 16:20:02 Versed I.V. 1 mg Lawrence Buffie for sedation Daron Duggan RN 16:20:05 Fentanyl I.V. 50 Lawrence Buffie for sedation mcg Daron Duggan RN 16:33:28 Heparin Bolus I.V. 9000 Lawrence Gabriela for units Daron Velazquez anticoagulation RN 16:39:04 Plavix P.O. 600 Lawrence Gabriela for mg Daron Velazquez antiplatelet RN therapy Procedure Log Time Note 14:54:02 Informed consent obtained and on chart 14:57:29 Patient allergic to Other allergyiodine 14:57:32 Arrival Date: 09/19/2019 12:00:00 AM 14:57:33 Admit Source: Other 14:57:39 Insurance Payor : Medicare 14:58:08 Patient Height : 71 inches 14:58:12 Patient Weight : 218.15 lbs 14:59:04 Lab Result : Hemoglobin 8.8 g/dl 14:59:04 Lab Result : Hematocrit 28.2 % 14:59:04 Lab Result : eGFR NONAFRICAN 57 ml/min 14:59:04 Lab Result : BUN 20 mg/dl 14:59:04 Lab Result : Creatinine 1.3 mg/dl 14:59:15 Diagnostic Cath Status : Urgent 14:59:39 Procedure Status Elective Heart Cath (OP). 14:59:41 Time tracking: Regular hours (M-F 7:00 - 5:00) 14:59:46 Plan of Care:Hemodynamics will remain stable., Cardiac rhythm will remain stable., Comfort level will be maintained., Respiratory function will remain adequate., Patient/ family verbilizes understanding of procedure., Procedure tolerated without complication., Recovers from procedure without complications.. 15:00:19 H&P Date Dictated: 09/14/2019 Within 30 days and on chart.. 15:00:21 Pre-procedure instructions explained to patient. 15:00:21 Pre-op teaching completed and patient verbalized understanding. 15:00:23 Family unavailable. 15:00:24 Patient NPO since Midnight. 15:00:31 Lab results completed and on chart. 15:00:37 Stress Test: yes; abnormal INFERIOR. 15:00:41 Alarms reviewed by R. N. 15:00:41 Sharps counted by scrub and verified by R.N. 15:00:54 Use device set Femoral Dx 15:15:59 Patient diabetic? Yes. 15:16:11 Is the patient allergic to Iodine/contrast media? Yes. 15:16:14 Was the patient premedicated? Yes 15:16:35 If diabetic: On Metformin? Yes 15:16:41 Is patient on blood thinner?Yes 15:16:46 ACC The patient was administered the following blood thiners within the last 24 hours: Xarelto 15:21:26 Risk of Mortality: 1.1 15:21:31 Risk of blood transfusion: 19.0 15:21:36 Risk of CHRISTINE: 8.1 15:26:09 Jennifer Duggan RN sent for patient. Start room use. 15:50:36 Patient received from Teralynk II to CCL 2 Alert and oriented. Tansferred to table in Supine position. 15:50:37 Warm blankets applied, and adriana hugger turned on for patient comfort. 15:50:38 Correct patient and procedure confirmed by team. 15:50:38 ECG and BP/O2 sat monitors applied to patient. 16:01:34 Vital chart was started 16:02:12 If on Metformin: Last Dose? 09/12/2019 16:02:18 Baseline sample Acquired. 16:03:14 Rhythm: sinus rhythm 16:03:18 Full Disclosure recording started 16:03:19 - 16:03:55 ----Pre-sedation anethsthesia assessment.---- 16:03:59 Previous problem with sedation/anesthesia? No ? 16:04:02 Snore? Yes 16:04:06 Sleep apnea? Unknown 16:04:08 Deviated septum? Unknown 16:04:14 Opens mouth fully? Yes 16:04:18 Sticks out tongue? Yes 16:04:47 Airway obstruction? Yes COPD/PNEUMONIA 16:04:51 Dentures? No ? 16:05:06 IV patent on arrival in left forearm with 0.9% NaCl at [facility]. 16:05:17 Right groin area was prepped with chlora-prep and draped in sterile fashion 16:05:42 Use device set Femoral Dx 16:05:49 ACIST Syringe (18149) opened to sterile field. 16:05:49 Bag Decanter (2002S) opened to sterile field. 16:05:50 Medline Cath Pack ([id number]) opened to sterile field. 16:05:53 ACIST Hand Control (87417) opened to sterile field. 16:05:53 ACIST Manifold (11221) opened to sterile field. 16:05:55 DIAGNOSTIC Multipack 5Fr catheter set (SB2358) opened to sterile field. 16:05:56 Tegaderm 4 x 4 (1626W) opened to sterile field. 16:05:58 SHEATH 5FR [place] (VJD750) opened to sterile field. 16:05:59 EMERALD Guide Wire (027-865) opened to sterile field. 16:09:08 Oxygen 2 l/min etCO2 Nasal cannula was administered by Jennifer Duggan RN; used for procedure; Verbal order read back and verified. 16:09:14 Lidocaine 2% 20ml vial added to field was administered by Lawrence Neri MD ; for local anesthetic; Verbal order read back and verified. 16:09:20 Heparin Flush Bag (1000units/500ml NS) 2 bags added to field was administered by Lawrence Neri MD; used for procedure; Verbal order read back and verified. 16:09:29 0.9% NaCl 100 ml/hr I.V. was administered by Jennifer Duggan RN; Per physician; Verbal order read back and verified. 16:09:33 KIRA SPOKE WITH TAMIKA ROSE TO INFORM CASE BEGINNING. 16:11:31 Zero performed for pressure channel P1 16:14:31 Physician arrived 16:14:31 --------ALL STOP TIME OUT------ 16::33 Final Timeout: patient, procedure, and site verified with staff and physician. All members of the team are in agreement. 16:14:43 Right groin site verified by team. 16:15:03 Fire Safety Assessment: A--An alcohol-based skin anteseptic being used preoperatively., C--Open oxygen or nitrous oxide is being used., D--An ESU, laser, or fiber-optic light is being used. 16:15:27 Physical assessment completed. ASA score P 4 - A patient with severe systemic disease that is a constant threat to life as per Lawrence Neri MD. 16:15:29 Versed 1 mg I.V. was administered by Jennifer Duggan RN; for sedation; Verbal order read back and verified. 16:15:33 Fentanyl 50 mcg I.V. was administered by Jennifer Duggan RN; for sedation; Verbal order read back and verified. 16:15:38 2) 60-89 Mildly reduced kidney function, and other findings (as for stage 1) point to kidney disease. 16:15:44 Maximum allowable contrast dose (3.7 X eGFR X 0.75)191 ml. 16:15:51 Sedation plan: IV Moderate Sedation Medication:Versed, Fentanyl 16:20:02 Versed 1 mg I.V. was administered by Jennifer Duggan RN; for sedation; Verbal order read back and verified. 16:20:05 Fentanyl 50 mcg I.V. was administered by Jennifer Duggan RN; for sedation; Verbal order read back and verified. 16:20:53 Procedure started. 16:21:22 Local anesthetic to right femoral artery with Lidocaine 2% by Lawrence ramon MD.INITIAL ACCESS ONLY 16:24:23 A 6 Fr Short sheath was inserted into the Right Femoral artery 16:24:37 A MULTIPACK JL 4.0 5Fr catheter was advanced over the wire and used for Left Coronary Angiography. 16:25:04 Injector settings: Ml/sec: 3, Volume: 6, 16:25:26 LCA angiography performed. 16:26:46 Catheter removed. 16:27:01 A MULTIPACK 3DRC 5Fr catheter was advanced over the wire and used for Right Coronary Angiography. 16:27:51 RCA angiography performed. 16:27:57 Injector settings: Ml/sec: 3, Volume: 6, 16:28:16 SHEATH 6FR [place] (JNT191) opened to sterile field. 16:28:17 TUBING High Pressure Extension Tubing (Neri) ([id number]) opened to sterile field. 16:28:19 INFLATOR Merit BasixCompak (BN0305) opened to sterile field. 16:28:28 Catheter removed. 16:28:38 A MULTIPACK Pigtail 5 Fr catheter was advanced over the wire and used for LV Angiography. 16::44 Injector settings: Ml/sec: 5, Volume: 15, 16::48 LV gram done using POPE 16:29:48 LV hemodynamics recorded. 16:30:12 EF : 50 % 16:30:38 Catheter removed. 16:31:01 Proceeding to intervention. 16:31:17 GUIDE 6FR XBLAD 3.5 catheter ([id number]) opened to sterile field. 16:31:38 BMW 300cm [place] 2 J wire ([id number]) opened to sterile field. 16:32:00 Sheath upsized to a 6 Fr Short. 16:32:08 ACC Pre-intervention RADHA Flow is 3. 16:32:18 6 Fr XBLAD3.5 guide catheter was inserted over the wire 16:32:23 IUG439 wire advanced. 16:33:28 Heparin Bolus 9000 units I.V. was administered by Gabriela Velazquez RN; for anticoagulation; Verbal order read back and verified. 16:35:08 Pre PCI Site: [place] mLAD has 80% stenosis. 16:37:01 Place stent Inflation Number: 1 A INTEGRITY OTW 3.5 X 12 stent ([id number]) was prepped and advanced across the Mid LAD . The stent was deployed at 13 GEMMA for 0:00 (min:sec) . 16:38:09 ACC Post-intervention RADHA Flow is 3. 16:38:13 Stent catheter was removed intact over wire. 16:38:16 Wire removed. 16:38:17 Guide catheter removed. 16:38:35 EXOSEAL 6Fr (EX600) opened to sterile field. 16:38:57 Post PCI Site: [place] mLAD has 0% stenosis. 16:39:04 Plavix 600 mg P.O. was administered by Gabriela Velazquez RN; for antiplatelet therapy; Verbal order read back and verified. 16:39:15 Sheath removed intact; hemostasis achieved with Exoseal to the Right Femoral artery. 16:39:19 Procedure ended.(Physican Out) 16:39:36 Contrast amount:Isovue 300 95ml. 16:39:43 Maximum allowable dose exceeded? No. 16:39:53 Fluoroscopy time 03.60 minutes. 16:40:05 Fluoroscopy dose: 867 mGy 16:40:05 Flurop Dose total: 867 16:40:15 Dose Area Product 55902 mGy/cm. 16:40:17 Sharps counted by scrub and verified by R.N. 16:40:25 Insertion/operative site no bleeding no hematoma. 16:40:30 Post-op/insertion site Right Femoral artery dressed using a 4 x 4 and Tegaderm. 16:40:36 Post right femoral artery:stable 16:40:43 Post-procedure physical assessment completed. ASA score P 4 - A patient with severe systemic disease that is a constant threat to life as per Lawrence Neri MD. 16:40:48 Post procedure rhythm: unchanged. 16:40:51 Estimated blood loss: 10 ml 16:40:53 Post procedure instruction explained to patient.Patient verbalizes understanding. 16:40:54 Patient needs reinforcement of post procedure teaching. 16:42:20 Procedure type changed to Cath procedure, Diagnostic procedure, LHC, C w/Coronaries, Sedation Charges, Moderate Sedation up to 15 minutes, PCI procedure, Coronary Stent, Coronary Stent Initial, Hemochron ACT Test 16:42:29 Procedure and supply charges have been captured, reviewed, submitted an d are correct. 16:43:39 Procedure Complication : No complications 16:43:44 Vital chart was stopped 16:43:48 [facility] Findings: MVD- PCI performed (see procedure note) 16:44:09 ACT drawn and resulted at OUT OF RANGE seconds. (normal therapeutic range 180-240 seconds). 16:44:22 Operative report dictated upon procedure completion. 16:44:23 See physician's report for complete and final results. 16:44:25 Report given to [facility]. 16:44:30 Patient transfered to [facility] with Bed. 16:44:33 Procedure ended. 16:44:33 Full Disclosure recording stopped 16:44:55 ACC-PCI Only Patient was given prescriptions, or instructed by Lawrence Neri MD to start/continue the following medications upon discharge: Plavix 16:44:58 End room use (Document Last) Intervention Summary Intervention Notes Time ActionType Lesion and Equipment Action# Pressure Duration Attributes Used 16:37:01 Place stent Mid LAD INTEGRITY 1 13 00:00 OTW 3.5 X 12 stent ([id number]) Device Usage Item Name Manufacture Quantity Catalog Hospital Part Current Minimal L ot# / Number Charge Number Stock Stock Serial# Code ACIST Acist 1 36846 854916 477550 481780 20 Syringe Medical (77342) Systems Inc Bag Microtek 1 203912 10233 956559 5 Decanter Medical Inc. () Medline Medline 1 [id number] 666947 34604 530797 5 Cath Pack ([id number]) ACIST Hand Acist 1 91268 679285 493467 796465 5 Control Medical (55803) Systems Inc ACIST Acist 1 08134 207564 194271 976805 5 Manifold Medical (38631) Systems Inc DIAGNOSTIC Cardinal 1 ES3821 719805 35681 159081 30 MultipColibrí 5Fr catheter set (XI3737) Tegaderm 4 3M 1 1626W 106022 269619 357846 5 x 4 (1626W) SHEATH 5FR Terumo 1 HON159 359301 146133 061740 5 [place] (OLU383) EMERALD Cardinal 1 502-455 154857 323065 966930 5 Guide Wire Health (502-455) MULTIPACK Cardinal 1 634621 5 JL 4.0 5Fr Health catheter MULTIPACK Cardinal 1 572371 5 3DRC 5Fr Health catheter SHEATH 6FR Terumo 1 LIO203 526872 176320 050673 40 [place] (JTH318) TUBING High Merit 1 [id number] 829249 48574 470607 10 Pressure Medical Extension Tubing (Neri) (WP4674F) INFLATOR Merit 1 MD3356 503204 637848 473543 15 [facility] Medical BasixCompak (HP9179) MULTIPACK Cardinal 1 978774 5 Pigtail 5 Health Fr catheter GUIDE 6FR Cardinal 1 41471951 230630 264792 880672 10 XBLAD 3.5 Health catheter (21855527) BMW 300cm [place] 1 [id number] 901088 801412 244552 5 [place] 2 Vascular J wire (3303801P) INTEGRITY Medtronic 1 [id number] 842146 928870 005490 1 OTW 3.5 X 12 stent ([id number]) EXOSEAL 6Fr Cardinal 1 EX600 473117 340422 952410 10 (EX600) Health Signature Audit [place] Stage Time Signature Unsigned Intra-Procedure 09/19/2019 Kira 4:45:32 PM Francisco RT(R) (CV) Intra-Procedure 09/19/2019 Gabriela Velazquez 4:46:44 PM RN Intra-Procedure 09/19/2019 Lawrence Neri MD 4:47:16 PM Signatures Performing Physician : Signature : Lawrence Neri MD Date : Time : Monitor : Kira Signature : Francisco RT Date : Time : Nurse : Gabriela Velazquez RN Signature : Date : Time : [address] [address]
[~2019-09-12 10:50] MED LIST changes: +PLAVIX75 MG PO
[2019-09-12] MEDS ORDERED: SYMBICORT 16010.2 GM INH (12:11)
[2019-09-12] MEDS ORDERED: IPRAT-ALBUT 0.5-3 ML UPD (12:12)
[2019-09-12] MEDS ORDERED: PRAVACHOL20 MG PO (12:12)
[2019-09-12] MEDS ORDERED: TOPROL XL25 MG PO (12:13)
[2019-09-12] MEDS ORDERED: PROAIR HFA8.5 G1 INH (12:13)
[2019-09-12] MEDS ORDERED: VITAMIN D3 PO (12:14)
[2019-09-12] MEDS ORDERED: VITAMIN B-121000 MCG PO (12:15)
[2019-09-12 13:15] VITALS: BP 133/79
--- NOTE | 2019-09-12 15:06 | NUR ---
THIS NURSE AND ANOTHER NURSE ATTEMPTED TO START IV. VASCULAR ACCES NURSE AND CALLED AND SHE STARTED A 20G IV IN LEFT HAND.
[2019-09-12 18:23] VITALS: BP 133/75
--- NOTE | 2019-09-12 19:25 | NUR ---
PT SITTING UP ON SIDE OF BED RESPIRATORY IS AT BEDSIDE. BNO SIGNS OF DISTRESS NOTED. RESPIRATORY IS EVEN AND UNLABOARED. PT ENCOURAGED TO CALL FOR HELP WHEN GETTING IN AND OUT OF BED. CALL LIGHT WITH IN REACH. WILL CONTINUE TO MONITOR
[2019-09-12 20:49] VITALS: BP 112/65
--- NOTE | 2019-09-12 21:00 | NUR ---
PT REFUSED INSULIN FOR 156 BLOOD SUGAR. CALL LIGHT WITH IN REACH. WILL CONTINUE TO MONITOR
[2019-09-13 00:30] VITALS: BP 125/77
--- NOTE | 2019-09-13 02:56 | NUR ---
PT LYING IN BED RSTING WITH EYES CLOSED. EASILY AWAKEN WITH VOICE STIMULATION. NO SIGNS OF DISTRESS NOTED. NO COMPLAINTS AT THIS TIME. PT ENCOUARGED TO CALL FOR HELP WHEN GETTING IN AND OUT OF BED AND NEEDED. CALL LIGHT WITH IN REACH. WILL CONTINUE TO MONITOR
[2019-09-13 05:59] LABS: HEMATOCRIT 28.3 % (42.0-54.0); HEMOGLOBIN 8.5 g/dL (13.5-17.5); LYMPHOCYTES 12.1 % (15-50); MCH 27.6 pg (26.0-34.0); MCV 91.9 fL (80.0-100.0); MEAN PLATELET VOLUME 9.7 fL (7.4-10.4); NEUTROPHILS 85.9 % (40-80); PLATELET COUNT 215 10x3/uL (130-400); RBC 3.08 10x6/uL (4.20-6.10); RDW 17.4 % (11.5-14.5); WBC 4.9 10x3/uL (4.8-10.8)
[2019-09-13 06:10] LABS: ANION GAP 15.9 mmol/L (8-16); CALCIUM 9.9 mg/dL (8.5-10.1); CARBON DIOXIDE 23.4 mmol/L (21.0-32.0); CREATININE - SERUM 1.5 mg/dL (0.6-1.3); POTASSIUM - SERUM 4.3 mmol/L (3.5-5.1)
[2019-09-13 06:28] VITALS: BP 138/75
--- NOTE | 2019-09-13 07:00 | NUR ---
RECEIVED REPORT. ASSUMED CARE OF PATIENT. PATIETN SITTING TO SIDE OF BED. DR. HALEY AT BEDSIDE FOR AM ROUNDS. CALL LIGHT WITHIN REACH. WHITE BOARD UPDATED. NO DISTRESS.
--- NOTE | 2019-09-13 07:20 | NUR ---
AT BEDSIDE FOR AM ROUNDS. UPDATED OF D-DIMER RESULTS. NO NEW ORDERS RECEIVED. PATIENT SITTING UP TO SIDE OF BED. PROVIDING EDUCATION TO PATIENT IN REGARDS TO ELEVATED D-DIMER. THANKED .
[2019-09-13 09:14] VITALS: BP 124/65
--- NOTE | 2019-09-13 11:03 | NUR ---
ESEQUIEL FROM [facility] TO RETRIEVE PATIENT FOR CTA SOON.
--- NOTE | 2019-09-13 11:40 | NUR ---
PATIENT LEFT UNIT VIA WHEELCHAIR FOR CTA OF CHEST. NO DISTRESS UPON LEAVING UNIT AT THIS TIME.
--- NOTE | 2019-09-13 12:14 | NUR ---
PATIENT REMAINS IN NUCLEAR MED FOR CTA.
--- NOTE | 2019-09-13 12:36 | NUR ---
FSBS 260. 16 UNITS HUMULIN ADMINISTERED PER SLIDING SCALE. NO DISTRESS.
--- NOTE | 2019-09-13 13:12 | NUR ---
DOPPLER OF LOWER EXTREMITIES COMPLETED AT BEDSIDE AT THIS TIME. NO DISTRESS.
--- NOTE | 2019-09-13 14:25 | NUR ---
SITTING TO SIDE OF BED. NO DISTRESS. PATIENT RESTING LIGHTS OUT SO HE CAN TAKE A NAP. CALL LIGHT WITHIN REACH.
[2019-09-13 14:56] VITALS: BMI 31.2
--- NOTE | 2019-09-13 16:38 | MORECARE ---
CASE MANAGEMENT DISCHARGE SUMMARY PATIENT: NATY COLIN JR UNIT: [id number] ADM DATE: 09/12/19 AGE: 79 : 42 SEX: M ROOM/BED: D.2102 AUTHOR: MOJGAN MUIR PHYSICIAN: REFERRING PHYSICIAN: DAYDAY HALEY MD DATE OF SERVICE: 09/13/19 Discharge Plan Patient Name: [facility] COLIN [facility] [facility] 1940 Planned Disposition: Home Anticipated Discharge Date: Discharge Date: Expected LOS: Initial Reviewer: [email or web address] Initial Review Date: 09/12/2019 Generated: 09/13/19 5:38 pm Patient Name: NATY COLIN Page 70211 at 1638 All edits/amendments must be made on the electronic document DICTATION DATE: 09/13/191637 SENIOR PREMIUM AUDITOR: KARISSA 09/13/19 1638 RPT#: [id number] DC DATE: STATUS: ADM IN [facility] [address] [place] [address] END OF REPORT
--- NOTE | 2019-09-13 16:45 | NUR ---
FSBS 168. 8 UNITS HUMULIN ADMINISTERED PER SLIDING SCALE. NO DISTRESS.
--- NOTE | 2019-09-13 16:47 | MORECARE ---
CASE MANAGEMENT DISCHARGE SUMMARY PATIENT: NATY COLIN JR UNIT: [id number] ADM DATE: 09/12/19 AGE: 79 : 42 SEX: M ROOM/BED: D.2102 AUTHOR: ISADORA,DOC PHYSICIAN: REFERRING PHYSICIAN: DAYDAY HALEY MD DATE OF SERVICE: 09/13/19 Discharge Plan Patient Name: NATY COLIN Facility: [facility]:[place] : 1940 Planned Disposition: Home Anticipated Discharge Date: Discharge Date: Expected LOS: Initial Reviewer: [email or web address] Initial Review Date: 09/12/2019 Generated: 09/13/19 5:46 pm Comments DCP- Discharge Planning Updated by [email or web address]: Regina Santillan on 09/13/19 3:[address] Patient Name: NATY COLIN Admission Status: Elective Accout number: [id number] Admission Date: 09-12-2019 : 1940 Admission Diagnosis: Attending: DAYDAY HALEY Current LOS: 1 Anticipated DC Date: Planned Disposition: Home Primary Insurance: MEDICARE A & B Discharge Planning Comments: CM met with patient at bedside after explaining CM role and obtaining verbal consent. Patient lives at home alone where he is independent with his care and plans to return there upon discharge. Patient feels this would be a safe discharge. CM discussed availability / needs of home health and medical equipment. Patient states that he has home/ portable 02 and nebulizer with [employer]. Patient denies any discharge needs at this time. Patient states he will have his family drive him home upon discharge. CM will continue to follow and assist as needed with discharge planning / needs. Neurology Specialist: Regina Santillan DCPIA - Discharge Planning Initial Assessment Updated by [email or web address]: Regina Santillan on 09/13/19 4:39 pm * Is the patient Alert and Oriented? Yes * How many steps to enter\exit or inside your home? * PCP [facility] * [facility]acy [facility] * Preadmission Environment Home Alone * ADLs Independent * Equipment Nebulizer * Other Equipment HOME / PORTABLE 02 - [employer] * List name and contact numbers for known caregivers / representatives who currently or will assist patient after discharge: DANIA ROSE - [phone] * Verbal permission to speak to the caregivers and representatives has been obtained from the patient. Yes * Community resources currently utilized None * Additional services required to return to the preadmission environment? No * Can the patient safely return to the preadmission environment? Yes * Has this patient been hospitalized within the prior 30 days at any hospital? No Last DP export: 09/13/19 3:38 p Patient Name: NATY COLIN Page 61638 at 1647 All edits/amendments must be made on the electronic document DICTATION DATE: 09/13/191645 FIELD AUDITOR: KARISSA 09/13/191645 RPT#: [id number] DC DATE: STATUS: ADM IN [facility] [address] [place] [address] END OF REPORT
[2019-09-13 16:52] VITALS: BP 111/79
--- NOTE | 2019-09-13 19:05 | NUR ---
REPORT RECEIVED, WILL CONTINUE POC. PATIENT IS AAOX4, SITTING UP BEDSIDE HAVING BREATHING TX. NO S/S OF DISTRESS OBSERVED, RR EVEN AND UNLABORED ON 2L O2 VIA NC. PIV TO LT HAND, SL. PATIENT DENIES FURTHER NEEDS AT THIS TIME. CL IN REACH, BED LOCKED AND LOWERED. WILL CTM.
[2019-09-13 20:00] VITALS: BP 115/66
[2019-09-14] VITALS: BP 130/74
--- NOTE | 2019-09-14 00:49 | NUR ---
I have reviewed this patient and I concur with the Shift Assessment completed by the Licensed Practical Nurse today this shift.
[2019-09-14 04:00] VITALS: BP 105/44
[2019-09-14 07:45] LABS: BASOPHILS 0.1 % (0-2); EOSINOPHILS 0 % (0-7); HEMATOCRIT 26.3 % (42.0-54.0); HEMOGLOBIN 7.9 g/dL (13.5-17.5); IMMATURE GRANULOCYTES 0.1 % (0-5); LYMPHOCYTES 11.9 % (15-50); MCH 27.1 pg (26.0-34.0); MCV 90.4 fL (80.0-100.0); MONOCYTES 11.3 % (2-11); NEUTROPHILS 76.6 % (40-80); PLATELET COUNT 228 10x3/uL (130-400); RBC 2.91 10x6/uL (4.20-6.10); RDW 16.2 % (11.5-14.5)
[2019-09-14 07:48] LABS: ANION GAP 13.7 mmol/L (8-16); CALCIUM 9.7 mg/dL (8.5-10.1); CARBON DIOXIDE 25.5 mmol/L (21.0-32.0); CREATININE - SERUM 1.4 mg/dL (0.6-1.3)
[2019-09-14 07:49] LABS: POTASSIUM - SERUM 3.2 mmol/L (3.5-5.1)
[2019-09-14 07:51] LABS: WBC 6.8 10x3/uL (4.8-10.8)
--- NOTE | 2019-09-14 08:24 | EC ---
PATIENT:NATY COLIN JR DATE OF SERVICE: 09/12/19 SEX: M MEDICAL RECORD: [id number] DATE OF : 44 LOCATION:D.M2 D.210 AGE OF PATIENT: 79 ADMISSION DATE: 09/12/19 REFERRING PHYSICIAN: INTERPRETING PHYSICIAN: FRANCOISE WALLER MD ECHOCARDIOGRAM REPORT ECHO CHARGES 4 ECHO COMPLETE Date: 09/13/19 CLINICAL DIAGNOSIS: AFIB/ELEVATED D DIMER, EDEMA ECHOCARDIOGRAPHIC MEASUREMENTS (adult normal given) AC root (d.<3.7cm) 3.6 cm LV Septum d (<1.2 cm> 1.7 cm Valve Excursion 1.7 cm LV Septum (systole) 2.2 cm Left Atria (s.<4.0cm> 3.8 cm LVPW d(<1.2cm) 2.0 cm RV (d.<2.3cm) 5.1 cm LVPW (sytole) 2.5 cm LV diastole(<5.6CM) 4.0 cm MV E-F(>70mm/sec) cm LV systole 2.7 cm LVOT Diameter 1.6 cm MV exc.(>10mm) 1.0 cm Est.ejection fraction (50-75%) % DOPPLER: LVIT cm/sec A 54.0 cm/sec E 168.0 cm/sec LA cm/sec RVSP 37 mmHg LVOT 105 cm/sec AOP1/2T m/s Asc. Ao 159 cm/sec RVOT 95 cm/sec RA cm/sec PA 123 cm/sec AV Gradient Peak 10.06mmHg AV Mean 5.36 mmHg AV Area 1.4 cm MV Gradient Peak 14.31mmHg MV Mean 4.70 mmHg MV Area cm COMMENTS: Custom Tailor Apprentice: 2 HIRO HERNANDE[employer] Cook Head: 3 Dr. Spencer TAPE# PACS Pericardial Effusion N DATE OF SERVICE: Adequate 2D, color flow imaging, spectral Doppler, and M-Mode. LVH is present. LV internal dimension is normal. Wall motion is normal. EF is greater than or equal to 55%. Aortic valve is tricuspid. No evidence of stenosis by Doppler interrogation. Left atrium normal at 3.8 cm. Mitral valve shows no prolapse. Trace MR. Right-sided chambers are grossly normal. Trace TR. ECHOCARDIOGRAM REPORT [id number] NATY COLIN JR TRANSINT:[id number] Voice Confirmation ID: [id number] DOCUMENT ID: [id number] FRANCOISE WALLER MD at 0824 CC: [id number] DICTATION DATE: 09/13/19 1321 LEARNING AND DEVELOPMENT DIRECTOR: 09/13/19 1555 ADM IN [facility] [address] [id number]
[2019-09-14 09:35] VITALS: BP 104/50
--- NOTE | 2019-09-14 09:50 | NUR ---
HAT PLACED IN COMMODE TO COLLECT STOOL SPECIMEN. TERACHING DONE ON HOW TO COLLECT AND TO PRESS CALL LIGHT ONCE HE HAS IT COLLECTED. PT VERBALIZED UNDERSTANDING.
--- NOTE | 2019-09-14 09:55 | NUR ---
PT WANTED FSBS RECHECKED. FSBS 112.
--- NOTE | 2019-09-14 11:24 | NUR ---
I have reviewed this patient and I concur with the Shift Assessment completed by the Licensed Practical Nurse today this shift.
--- NOTE | 2019-09-14 11:56 | NUR ---
REEFER TRUCK DRIVER REPORTED TO ME PT HAD A 14 RUN OF VTACH. PT HAS BEEN C/O OF BEING COLD AND SHAKEY. PT'S INSULIN SLIDING SCALE TOO HIGH AND PT ALSO ON LANTUS. CALLED DR. FREY'S OFFICE AND SPOKE WITH LUISITO HIS OFFICE NURSE AND TOLD HER ALL THIS. SHE STATE SHE WILL SPEAK WITH DR. FREY AND CALL ME BACK. I VERBALIZED UNDERSTANDING.
--- NOTE | 2019-09-14 12:20 | NUR ---
SPOKE WITH LUISITO NURSE FROM OFFICE AND PT'S PCP OFFICE AND SHE STATES DR. FREY JUST SAID TO PLACE A CARDIOLOGY CONSULT. I ASKED IF THEY KNEW IF PT HAS EVER HAD STENTS OR PACEMAKER OR DEFIBRILLATOR. SHE STATES SHE DUG THROUGH PT'S CHART AND THEY CAN NOT FIND WHERE PT HAS HAD ANY OF THAT BUT PT IS AN ESTABLISHED PT OF [facility]. I VERBALIZED UNDERSTANDING. PAGED CARDIOLOGY TO NOTIFY THEM OF CONSULT.
--- NOTE | 2019-09-14 12:42 | NUR ---
NEVER GOT A RETURNED CALL. PAGED CARDIOLOGY AGAIN.
--- NOTE | 2019-09-14 12:50 | NUR ---
SPOKE WITH OILING MACHINE OPERATOR AND NOTIFIED HER OF CONSULT AND THAT PT HAD A 14 RN OF VTACH AND PT IS ALREADY AN ESTABLISHED PT OF DR. GILMORE. SHE VERBALIZED UNDERSTANDING. SHE STATES TO PRINT IT OFF AND GET AN EKG. I VERBALIZED UNDERSTANDING. PRINTED VTACH RUN AND PLACED IN CHART. DID EKG AND SCANNED IN COMPUTER AND PLACED IN CHART.
[2019-09-14 13:47] VITALS: BP 121/67
--- NOTE | 2019-09-14 16:30 | NUR ---
DR. GALEANO STATES TO ME DO CHANGE LANTUS TO 15UNITS QHS AND CHANGE SLIDING SCALE TO INTERMEDDIATE. I VERBALIZED UNDERSTANDING.
--- NOTE | 2019-09-14 17:32 | NUR ---
PT HAD A 9 RUN OF VTACH. PT ASYMPTOMATIC. PAGED LENNOX PACE.
--- NOTE | 2019-09-14 17:35 | NUR ---
SPOKE WITH ROBB PACE AND SHE STATES TO ORDER AMIODARONE 200MG PO DAILY AND GIVE FIRST DOES NOW. I VERBALIZED UNDERSTANDING.
[2019-09-14 18:26] VITALS: BP 127/75
--- NOTE | 2019-09-14 19:30 | NUR ---
PT SETTING ON SIDE OF BED, AAO X 3, RESP EVEN AND UNLABORED. NO DISTRESS NOTED. CL IN REACH, SR UP X 2.
[2019-09-14 20:00] VITALS: BP 128/77
[2019-09-15] VITALS: BP 140/79
[2019-09-15 04:00] VITALS: BP 121/59
[2019-09-15 06:16] LABS: BASOPHILS 0 % (0-2); EOSINOPHILS 0 % (0-7); HEMATOCRIT 26.2 % (42.0-54.0); IMMATURE GRANULOCYTES 0.1 % (0-5); LYMPHOCYTES 8.1 % (15-50); MCH 27.4 pg (26.0-34.0); MCHC 30.5 g/dL (31.0-37.0); MCV 89.7 fL (80.0-100.0); MEAN PLATELET VOLUME 9.5 fL (7.4-10.4); MONOCYTES 5.8 % (2-11); PLATELET COUNT 236 10x3/uL (130-400); RBC 2.92 10x6/uL (4.20-6.10); RDW 16.3 % (11.5-14.5); WBC 6.7 10x3/uL (4.8-10.8)
[2019-09-15 06:28] LABS: ANION GAP 13.9 mmol/L (8-16); CALCIUM 9.9 mg/dL (8.5-10.1); CARBON DIOXIDE 26.3 mmol/L (21.0-32.0); CREATININE - SERUM 1.5 mg/dL (0.6-1.3); MAGNESIUM - SERUM 2.1 mg/dL (1.8-2.4); POTASSIUM - SERUM 4.2 mmol/L (3.5-5.1)
[2019-09-15 08:55] VITALS: BP 116/68
--- NOTE | 2019-09-15 09:47 | NUR ---
PT RETURNED FROM STRESS TEST. PT CAN NOW HAVE MEDS AND EAT.
[2019-09-15 12:41] VITALS: BP 124/68
[2019-09-15 13:23] LABS: % SATURATION 5 % (15-55); IRON 20 ug/dl (35-150); TOTAL IRON BIND CAPACITY 346 ug/dl (260-445); UNSAT IRON BIND CAPACITY 326 ug/dl (150-375)
--- NOTE | 2019-09-15 14:26 | NUR ---
I have reviewed this patient and I concur with the Shift Assessment completed by the Licensed Practical Nurse today this shift.
[2019-09-15 16:34] VITALS: BP 117/61
--- NOTE | 2019-09-15 18:05 | NUR ---
LENNOX PACE STATES TO ME TO GENIE BONE. I VERBALIZED UNDERSTANDING.
[2019-09-15 18:08] LABS: IMMUNOGLOBULIN E 35 IU/mL (6-495)
--- NOTE | 2019-09-15 19:30 | NUR ---
PT SETTING ON SIDE OF BED, AAO X 3, RESP EVEN AND UNLABORED, NO DISTRESS NOTED, CL IN REACH, SR UP X 2.
[2019-09-15 20:00] VITALS: BP 107/58
[2019-09-16] VITALS: BP 127/71
[2019-09-16 03:51] LABS: BASOPHILS 0 % (0-2); EOSINOPHILS 0.1 % (0-7); HEMATOCRIT 25.6 % (42.0-54.0); HEMOGLOBIN 7.7 g/dL (13.5-17.5); IMMATURE GRANULOCYTES 0.1 % (0-5); LYMPHOCYTES 14.6 % (15-50); MCH 26.8 pg (26.0-34.0); MCHC 30.1 g/dL (31.0-37.0); MCV 89.2 fL (80.0-100.0); MONOCYTES 11.4 % (2-11); NEUTROPHILS 73.8 % (40-80); PLATELET COUNT 221 10x3/uL (130-400); RBC 2.87 10x6/uL (4.20-6.10); WBC 7.7 10x3/uL (4.8-10.8)
[2019-09-16 04:00] VITALS: BP 125/70
[2019-09-16 04:16] LABS: CALCIUM 9.9 mg/dL (8.5-10.1); CARBON DIOXIDE 26.5 mmol/L (21.0-32.0); CREATININE - SERUM 1.7 mg/dL (0.6-1.3); POTASSIUM - SERUM 3.5 mmol/L (3.5-5.1)
--- NOTE | 2019-09-16 07:30 | NUR ---
PT SITTING UP ON SIDE OF BED. CALL LIGHT WITHIN REACH. BED IN LOWEST POSITION. RR EVEN AND UNLABORED ON 2L NC. PT ASSISTED INTO SHOWER. LINENS CHANGED. PT BACK IN BED. DENIES FURTHER NEEDS OR PAIN AT THIS TIME. IV DRESSING CHANGED, CDI. WILL CONTINUE TO MONITOR.
[2019-09-16 08:24] VITALS: BP 127/73
--- NOTE | 2019-09-16 10:38 | NUR ---
Nutrition Follow-up: Eating well. Ate 100% of breakfast this AM. Denies N/V/C/D, chewing/swallowing difficulties. Diet: Diabetic PO intake: 78% avg x 9 meals Wt: 180# (09/15); 217.7# (09/12) Last BM: 09/14 Labs noted: Glu 138 Meds noted: Prednisone, Protonix, Lantus, Humulin, vitamin B12, vitamin D, Lasix, electrolyte protocol -Noted large wt difference between 09/12 and 09/15 (no wt sources listed). Monitor wt; noted daily wts ordered. -RD following.
[2019-09-16 12:34] VITALS: BP 113/55
--- NOTE | 2019-09-16 13:29 | NUR ---
UPON ASSESSING IV, CATHETER WAS ALMOST ENTIRELY OUT OF THE PT'S ARM. IV DC WITH CATHETER TIP INTACT. RESITED TO RIGHT FOREARM, 20 G.
--- NOTE | 2019-09-16 13:40 | NUR ---
I have reviewed this patient and I concur with the Shift Assessment completed by the Licensed Practical Nurse today this shift.
[2019-09-16 16:22] VITALS: BP 116/71
[2019-09-16 20:30] VITALS: BP 125/65
[2019-09-17 00:30] VITALS: BP 113/63
[2019-09-17 04:30] VITALS: BP 125/72
[2019-09-17 04:56] LABS: BASOPHILS 0.1 % (0-2); EOSINOPHILS 0.1 % (0-7); HEMATOCRIT 25.2 % (42.0-54.0); HEMOGLOBIN 7.7 g/dL (13.5-17.5); IMMATURE GRANULOCYTES 0.1 % (0-5); LYMPHOCYTES 14.7 % (15-50); MCH 27.3 pg (26.0-34.0); MCHC 30.6 g/dL (31.0-37.0); MCV 89.4 fL (80.0-100.0); MEAN PLATELET VOLUME 9.8 fL (7.4-10.4); MONOCYTES 10.7 % (2-11); NEUTROPHILS 74.3 % (40-80); PLATELET COUNT 235 10x3/uL (130-400); RBC 2.82 10x6/uL (4.20-6.10); RDW 16.2 % (11.5-14.5); WBC 6.7 10x3/uL (4.8-10.8)
[2019-09-17 05:19] LABS: ANION GAP 10.5 mmol/L (8-16); CALCIUM 9.9 mg/dL (8.5-10.1); CARBON DIOXIDE 27.8 mmol/L (21.0-32.0); CREATININE - SERUM 1.5 mg/dL (0.6-1.3); POTASSIUM - SERUM 3.3 mmol/L (3.5-5.1)
--- NOTE | 2019-09-17 07:30 | NUR ---
PT SITTING UP IN BED, RR EVEN AND UNLABORED. DENIES NEEDS OR PAIN AT THIS TIME. CALL LIGHT WITHIN REACH. BED IN LOWEST POSITION. DENIES NEEDS OR PAIN AT THIS TIME. WILL CONTINUE TO MONITOR.
[2019-09-17 09:47] VITALS: BP 139/70
[2019-09-17 13:10] VITALS: BP 110/72
[2019-09-17 17:59] VITALS: BP 123/78
--- NOTE | 2019-09-17 19:00 | NUR ---
REPORT RECEIVED. BEDSIDE SHIFT REPORT COMPLETE. PT SITTING ON THE SIDE OF THE BED, RR EVEN AND UNLABORED ON 2L NC. NO NEEDS EXPRESSED AT THIS TIME. NO S/SX OF DISTRESS OBSERVED. CALL LIGHT IN REACH. WILL CTM.
[2019-09-17 20:30] VITALS: BP 120/73
[2019-09-18 00:30] VITALS: BP 112/62
[2019-09-18 04:25] VITALS: BP 126/61
[2019-09-18 04:58] LABS: BASOPHILS 0.1 % (0-2); EOSINOPHILS 0.4 % (0-7); HEMATOCRIT 27.5 % (42.0-54.0); HEMOGLOBIN 8.3 g/dL (13.5-17.5); IMMATURE GRANULOCYTES 0.1 % (0-5); LYMPHOCYTES 18.3 % (15-50); MCH 27.2 pg (26.0-34.0); MCHC 30.2 g/dL (31.0-37.0); MCV 90.2 fL (80.0-100.0); MEAN PLATELET VOLUME 9.3 fL (7.4-10.4); MONOCYTES 10.6 % (2-11); NEUTROPHILS 70.5 % (40-80); PLATELET COUNT 252 10x3/uL (130-400); RBC 3.05 10x6/uL (4.20-6.10); RDW 16.2 % (11.5-14.5); WBC 7.1 10x3/uL (4.8-10.8)
[2019-09-18 05:18] LABS: ANION GAP 11.8 mmol/L (8-16); CALCIUM 9.9 mg/dL (8.5-10.1); CARBON DIOXIDE 27.4 mmol/L (21.0-32.0); CREATININE - SERUM 1.5 mg/dL (0.6-1.3); MAGNESIUM - SERUM 2.3 mg/dL (1.8-2.4); PHOSPHOROUS 2.7 mg/dL (2.5-4.9); POTASSIUM - SERUM 3.2 mmol/L (3.5-5.1)
--- NOTE | 2019-09-18 07:28 | NUR ---
PT SITTING UP ON SIDE OF BED. CALL LIGHT WITHIN REACH. BED IN LOWEST POSITION. RR EVEN AND UNLABORED. RECIEVED NEWSPAPER PER REQUEST. DENIES FURTHER NEEDS OR PAIN AT THIS TIME. WILL CONTINUE TO MONITOR.
[2019-09-18 09:24] VITALS: BP 135/77
[2019-09-18 12:10] VITALS: BP 109/65
--- NOTE | 2019-09-18 14:58 | NUR ---
I have reviewed this patient and I concur with the Shift Assessment completed by the Licensed Practical Nurse today this shift.
[2019-09-18 18:11] VITALS: BP 121/63
[2019-09-18 20:00] VITALS: BP 129/68
[2019-09-19 03:19] VITALS: BP 113/55; Ht 180.3 cm; Wt 91.6 kg
[2019-09-19 04:31] VITALS: BP 113/51
[2019-09-19 09:46] VITALS: BP 106/65
--- NOTE | 2019-09-19 10:59 | NUR ---
EDUCATED PATIENT ON UPCOMING PROCEDURE. CONSENTS WERE SIGNED. MEDS GIVEN PER MAR
[2019-09-19 11:24] LABS: BASOPHILS 0.2 % (0-2); EOSINOPHILS 1.7 % (0-7); HEMATOCRIT 28.2 % (42.0-54.0); HEMOGLOBIN 8.8 g/dL (13.5-17.5); IMMATURE GRANULOCYTES 0.2 % (0-5); MCH 28.6 pg (26.0-34.0); MCHC 31.2 g/dL (31.0-37.0); MCV 91.6 fL (80.0-100.0); MEAN PLATELET VOLUME 10.4 fL (7.4-10.4); MONOCYTES 9.5 % (2-11); NEUTROPHILS 63.4 % (40-80); RBC 3.08 10x6/uL (4.20-6.10); RDW 16.5 % (11.5-14.5)
[2019-09-19 11:27] LABS: PLATELET COUNT 172 10x3/uL (130-400)
[2019-09-19 11:47] LABS: ANION GAP 12.4 mmol/L (8-16); CALCIUM 9.6 mg/dL (8.5-10.1); CARBON DIOXIDE 27.1 mmol/L (21.0-32.0); CHOL - HDL RATIO 2.3 ratio (2.3-4.9); CREATININE - SERUM 1.3 mg/dL (0.6-1.3); LDL-HDL RATIO 1.2 ratio (1.5-3.5); POTASSIUM - SERUM 3.5 mmol/L (3.5-5.1)
[2019-09-19 11:51] VITALS: BP 105/69
[2019-09-19 17:02] VITALS: BP 130/64
--- NOTE | 2019-09-19 17:02 | NUR ---
REPORT RECIEVED FROM PRODUCTION SUPERVISOR OFF SHIFT.
--- NOTE | 2019-09-19 18:55 | NUR ---
POST CATH PT UNABLE TO BE ELEVATED REFUSED BREATHING TX AT THIS TIME
--- NOTE | 2019-09-19 19:20 | NUR ---
LAYING FLAT IN BED ALERT AND OX4 BED LOW AND LOCKED CALL LIGHT IS IN REACH DRSG TO RT GROIN IS DRY AND INTACT PT DENIES PAIN I ASSISTED WITH DRINKS OF WATER WILL RAISE PT UP ABOUT 8
--- NOTE | 2019-09-19 19:59 | NUR ---
I have reviewed this patient and I concur with the Shift Assessment completed by the Licensed Practical Nurse today this shift.
[2019-09-19 20:00] VITALS: BP 118/73
--- NOTE | 2019-09-19 20:20 | NUR ---
PT SET UP AND DINNER GIVEN PT DENIES PAIN RT GROIN NO BLEEDING
[2019-09-20] VITALS (8 sets, daily range): BP systolic 97–120; BP diastolic 41–73
--- NOTE | 2019-09-20 02:35 | NUR ---
I have reviewed this patient and I concur with the Shift Assessment completed by the Licensed Practical Nurse today this shift.
--- NOTE | 2019-09-20 11:20 | NUR ---
Nutrition Follow-up: Good/fair appetite PO intake. S/p cath yesterday. Diet: Diabetic PO intake: 50-100% Wt: 209# (09/19); 217.7# (09/12); noted I/Os (-870 cc yesterday) Last BM: 09/18 Labs reviewed Meds noted: Prednisone, Lantus, Protonix, Humulin, vitamin B12, vitamin D, Lasix, electrolyte protocol -Encourage PO intake and honor food preferences within diet restrictions. -Monitor wt; noted daily wts ordered. -RD following.
--- NOTE | 2019-09-20 14:05 | NUR ---
PT LEFT LEG STIFFEND AND SWOLLEN WITH +3 PTTING EDEMA. PEDAL PULSES HEARD WITH DOBBLER. RIANNA WITH CARDIOLOGY NOTIFIED. WILL CONTINUE TO MONITOR.
[2019-09-20 14:26] LABS: BASOPHILS 0.2 % (0-2); EOSINOPHILS 1.7 % (0-7); HEMATOCRIT 28.2 % (42.0-54.0); HEMOGLOBIN 8.7 g/dL (13.5-17.5); IMMATURE GRANULOCYTES 0.2 % (0-5); LYMPHOCYTES 18.9 % (15-50); MCH 27.9 pg (26.0-34.0); MCHC 30.9 g/dL (31.0-37.0); MCV 90.4 fL (80.0-100.0); MEAN PLATELET VOLUME 8.5 fL (7.4-10.4); MONOCYTES 11.3 % (2-11); NEUTROPHILS 67.7 % (40-80); PLATELET COUNT 198 10x3/uL (130-400); RBC 3.12 10x6/uL (4.20-6.10); RDW 16.2 % (11.5-14.5); WBC 5.8 10x3/uL (4.8-10.8)
[2019-09-20 14:33] LABS: ANION GAP 10.9 mmol/L (8-16); CALCIUM 9.6 mg/dL (8.5-10.1); CARBON DIOXIDE 29.6 mmol/L (21.0-32.0); CREATININE - SERUM 1.6 mg/dL (0.6-1.3); POTASSIUM - SERUM 3.5 mmol/L (3.5-5.1)
--- NOTE | 2019-09-20 18:53 | NUR ---
I have reviewed this patient and I concur with the Shift Assessment completed by the Licensed Practical Nurse today this shift.
--- NOTE | 2019-09-20 19:05 | NUR ---
AWAKE AND ALERT SITTING ON BED SIDE NEEDS SEEN TO AT THIS TIME BED LOW AND LOCKED CALL LIGHT IS WITH PT
[2019-09-21] VITALS: BP 105/58
--- NOTE | 2019-09-21 03:43 | NUR ---
I have reviewed this patient and I concur with the Shift Assessment completed by the Licensed Practical Nurse today this shift.
[2019-09-21 04:00] VITALS: BP 119/76
[2019-09-21 09:24] VITALS: BP 120/80
[2019-09-21 11:43] VITALS: BP 114/60
--- NOTE | 2019-09-21 13:14 | NUR ---
I have reviewed this patient and I concur with the Shift Assessment completed by the Licensed Practical Nurse today this shift.
--- NOTE | 2019-09-21 13:26 | MORECARE ---
CASE MANAGEMENT DISCHARGE SUMMARY PATIENT: NATY COLIN JR UNIT: [id number] ADM DATE: 09/12/19 AGE: 79 : 42 SEX: M ROOM/BED: D.2102 AUTHOR: ISADORA,DOC PHYSICIAN: REFERRING PHYSICIAN: DAYDAY HALEY MD DATE OF SERVICE: 09/21/19 Discharge Plan Patient Name: NATY COLIN Facility: [facility]:[place] : 1940 Planned Disposition: Home Anticipated Discharge Date: Discharge Date: Expected LOS: Initial Reviewer: [email or web address] Initial Review Date: 09/12/2019 Generated: 09/21/19 2:26 pm Comments DCP- Discharge Planning Updated by [email or web address]: Coreen Nielson on 09/21/19 12:[address] Patient Name: NATY COLIN Encounter No: [id number] : 1940 Primary Insurance: MEDICARE A & B Anticipated DC Date: Planned Disposition: Home External Planned Provider: : DCP follow-up note: Patient in agreement with discharge plan. No changes to plan. 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 States he has his portable oxygen here. Nurse is calling Dr. Haley for discharge order. Case management will follow and assist as needed. Coreen Nielson DCP- Discharge Planning Updated by [email or web address]: Regina Santillan on 09/13/19 3:[address] Patient Name: NATY COLIN Admission Status: Elective Accout number: [id number] Admission Date: 09-12-2019 : 1940 Admission Diagnosis: Attending: DAYDAY HALEY Current LOS: 1 Anticipated DC Date: Planned Disposition: Home Primary Insurance: MEDICARE A & B Discharge Planning Comments: CM met with patient at bedside after explaining CM role and obtaining verbal consent. Patient lives at home alone where he is independent with his care and plans to return there upon discharge. Patient feels this would be a safe discharge. CM discussed availability / needs of home health and medical equipment. Patient states that he has home/ portable 02 and nebulizer with [employer]. Patient denies any discharge needs at this time. Patient states he will have his family drive him home upon discharge. CM will continue to follow and assist as needed with discharge planning / needs. Automotive Upholsterer: Regina SALOMON - Discharge Planning Initial Assessment Updated by [id number]: Regina Santillan on 09/13/19 4:39 pm * Is the patient Alert and Oriented? Yes * How many steps to enter\exit or inside your home? * PCP [facility] * Pharmacy [facility] * Preadmission Environment Home Alone * ADLs Independent * Equipment Nebulizer * Other Equipment HOME / PORTABLE [address] [place] [address] * List name and contact numbers for known caregivers / representatives who currently or will assist patient after discharge: DANIA ROSE - [phone] * Verbal permission to speak to the caregivers and representatives has been obtained from the patient. Yes * Community resources currently utilized None * Additional services required to return to the preadmission environment? No * Can the patient safely return to the preadmission environment? Yes * Has this patient been hospitalized within the prior 30 days at any hospital? No Coverage Notice Reviewer: [email or web address] Natty Nielson Notice Issued Date-Time: 09/21/2019 13:16 Notice Type: IM Discharge Notice Notice Delivered To: Patient Relationship to Patient: Self Lead Accountant Name: Delivery Method: HAND - Hand Delivered Zehra Days: Prior Verbal Notification: Recipient Understood Notice: Yes Recipient Signature: Yes Med Rec Note Co-signed by Attending: Coverage Notice Comment: IMM explained, signed, given, copy placed in MR Last DP export: 09/13/19 3:47 p Patient Name: NATY COLIN Page [phone] at 1326 All edits/amendments must be made on the electronic document DICTATION DATE: 09/21/19 1326 NAVIGATION OFFICER: KARISSA 09/21/19 1326 RPT#: [id number] DC DATE: STATUS: ADM IN [facility] [address] [place] [address] END OF REPORT
[2019-09-21] MEDS ORDERED: PLAVIX75 MG PO (14:27)
[2019-09-21] MEDS ORDERED: FUROSEMIDE40 MG PO (14:29)
[2019-09-21] MEDS ORDERED: BAYER CHEWABLE81 MG PO (15:00)
--- NOTE | 2019-09-21 15:46 | NUR ---
PT DISCHARGED HOME VIA WHEELCHAIR. TELEMETRY REMOVED AND RETURNED. PT SIGNED PROPER DISCHARGE INSTRUCTIONS AND REMOVED ALL VALUABLES FROM THE ROOM. PIV REMOVED WITH CATHETER TIP FULLY INTACT.
--- NOTE | 2019-09-23 16:40 | MORECARE ---
CASE MANAGEMENT DISCHARGE SUMMARY PATIENT: NATY COLIN JR UNIT: [id number] ADM DATE: 09/12/19 AGE: 79 : 42 SEX: M ROOM/BED: D.2102 AUTHOR: ISADORA,DOC PHYSICIAN: REFERRING PHYSICIAN: DAYDAY HALEY MD DATE OF SERVICE: 09/23/19 Discharge Plan Patient Name: NATY COLIN Facility: [facility]:[place] : 1940 Planned Disposition: Home Anticipated Discharge Date: Discharge Date: 09/21/2019 Expected LOS: 0 Initial Reviewer: [email or web address] Initial Review Date: 09/12/2019 Generated: 09/23/19 5:40 pm Comments DCP- Discharge Planning Updated by [email or web address]: Coreen Nielson on 09/21/19 12:[address] Patient Name: NATY COLIN Encounter No: [id number] : 1940 Primary Insurance: MEDICARE A & B Anticipated DC Date: Planned Disposition: Home External Planned Provider: : DCP follow-up note: Patient in agreement with discharge plan. No changes to plan. 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 States he has his portable oxygen here. Nurse is calling Dr. Haley for discharge order. Case management will follow and assist as needed. Coreen Nielson DCP- Discharge Planning Updated by [id number]: Regina Santillan on 09/13/19 3:[address] Patient Name: NATY COLIN Admission Status: Elective Accout number: [id number] Admission Date: 09-12-2019 : 1940 Admission Diagnosis: Attending: DAYDAY HALEY Current LOS: 1 Anticipated DC Date: Planned Disposition: Home Primary Insurance: MEDICARE A & B Discharge Planning Comments: CM met with patient at bedside after explaining CM role and obtaining verbal consent. Patient lives at home alone where he is independent with his care and plans to return there upon discharge. Patient feels this would be a safe discharge. CM discussed availability / needs of home health and medical equipment. Patient states that he has home/ portable 02 and nebulizer with [facility]. Patient denies any discharge needs at this time. Patient states he will have his family drive him home upon discharge. CM will continue to follow and assist as needed with discharge planning / needs. Mathematician: Regina Furr DCPIA - Discharge Planning Initial Assessment Updated by [id number]: Regina Santillan on 09/13/19 4:39 pm * Is the patient Alert and Oriented? Yes * How many steps to enter\exit or inside your home? * PCP [facility] * Pharmacy [facility] * Preadmission Environment Home Alone * ADLs Independent * Equipment Nebulizer * Other Equipment HOME / PORTABLE [address] [place] [address] * List name and contact numbers for known caregivers / representatives who currently or will assist patient after discharge: DANIA ROSE - [phone] * Verbal permission to speak to the caregivers and representatives has been obtained from the patient. Yes * Community resources currently utilized None * Additional services required to return to the preadmission environment? No * Can the patient safely return to the preadmission environment? Yes * Has this patient been hospitalized within the prior 30 days at any hospital? No Coverage Notice Reviewer: [email or web address] Natty Nielson Notice Issued Date-Time: 09/21/2019 13:16 Notice Type: IM Discharge Notice Notice Delivered To: Patient Relationship to Patient: Self Sheet Metal Work Furnace Installer Name: Delivery Method: HAND - Hand Delivered Zehra Days: Prior Verbal Notification: Recipient Understood Notice: Yes Recipient Signature: Yes Med Rec Note Co-signed by Attending: Coverage Notice Comment: IMM explained, signed, given, copy placed in MR Last DP export: 09/21/19 12:26 p Patient Name: NATY COLIN Page [phone] at 1640 All edits/amendments must be made on the electronic document DICTATION DATE: 09/23/19 1640 SCHOOL CROSSING GUARD SUPERVISOR: KARISSA 09/23/19 1640 RPT#: [id number] DC DATE:09/21/19 STATUS: DIS IN [facility] [address] [place] [address] END OF REPORT
== END 2019-09-21 15:47 | disposition home or self-care (01) | DRG 981 ==
LOC: D.M2 10:50
PROVIDERS: Internal Medicine Cardiovascular Disease; Internal Medicine Gastroenterology; Internal Medicine Interventional Cardiology; Internal Medicine Pulmonary Disease; ADMIT Family Medicine; ATTEND Family Medicine
PROC: B2111ZZ Fluoroscopy of Multiple Coronary Arteries using Low Osmolar Contrast (ICD-10-PCS; 2019-09-19)
PROC: B2151ZZ Fluoroscopy of Left Heart using Low Osmolar Contrast (ICD-10-PCS; 2019-09-19)
PROC: 02703DZ Dilation of Coronary Artery, One Artery with Intraluminal Device, Percutaneous Approach (ICD-10-PCS; principal; 2019-09-19 15:30)
PROC: 4A023N7 Measurement of Cardiac Sampling and Pressure, Left Heart, Percutaneous Approach (ICD-10-PCS; 2019-09-19 15:30)
DX: J96.20 Acute and chronic respiratory failure, unspecified whether with hypoxia or hypercapnia (principal); J18.9 Pneumonia, unspecified organism; I50.31 Acute diastolic (congestive) heart failure; J44.1 Chronic obstructive pulmonary disease with (acute) exacerbation; J44.0 Chronic obstructive pulmonary disease with (acute) lower respiratory infection; I82.4Z2 Acute embolism and thrombosis of unspecified deep veins of left distal lower extremity; I25.119 Atherosclerotic heart disease of native coronary artery with unspecified angina pectoris; I11.0 Hypertensive heart disease with heart failure; I27.20 Pulmonary hypertension, unspecified; E53.8 Deficiency of other specified B group vitamins; D50.9 Iron deficiency anemia, unspecified; E11.9 Type 2 diabetes mellitus without complications; E78.5 Hyperlipidemia, unspecified; I48.0 Paroxysmal atrial fibrillation; Z87.891 Personal history of nicotine dependence; Z86.73 Personal history of transient ischemic attack (TIA), and cerebral infarction without residual deficits

== ENCOUNTER 2019-10-18 10:08 | Inpatient (IN) | payer MEDICARE ==
[~2019-10-18] VITALS: Ht 180.3 cm; Wt 90.2 kg
[~2019-10-18 10:08] MED LIST changes: +FUROSEMIDE40 MG PO; +IPRAT-ALBUT 0.5-3 ML UPD; +PRAVACHOL20 MG PO; +PROAIR HFA8.5 G1 INH; +SYMBICORT 16010.2 GM INH; +TOPROL XL25 MG PO; +VITAMIN B-121000 MCG PO; +VITAMIN D3 PO
[2019-10-18 10:11] VITALS: BP 123/72
[2019-10-18 10:59] LABS: BASOPHILS 0.4 % (0-2); EOSINOPHILS 0.9 % (0-7); HEMATOCRIT 23.4 % (42.0-54.0); IMMATURE GRANULOCYTES 0.2 % (0-5); LYMPHOCYTES 15.6 % (15-50); MCH 27.3 pg (26.0-34.0); MCHC 30.3 g/dL (31.0-37.0); MEAN PLATELET VOLUME 9.9 fL (7.4-10.4); MONOCYTES 10.8 % (2-11); NEUTROPHILS 72.1 % (40-80); PLATELET COUNT 205 10x3/uL (130-400); RDW 16.6 % (11.5-14.5); WBC 5.5 10x3/uL (4.8-10.8)
[2019-10-18 11:03] LABS: CALC OSMOLALITY 284 mosm/kg (275-300); CALCIUM 9.9 mg/dL (8.5-10.1); CARBON DIOXIDE 26.6 mmol/L (21.0-32.0); CHLORIDE - SERUM 105 mmol/L (98-107); CREATININE - SERUM 1.7 mg/dL (0.6-1.3); GLUCOSE 194 mg/dL (74-106); POTASSIUM - SERUM 3.3 mmol/L (3.5-5.1); SODIUM 139 mmol/L (136-145); UREA NITROGEN 18 mg/dL (7-18); eGFR NON AFRICAN AMERICAN 42 mL/min (90-120)
[2019-10-18 11:05] LABS: APTT 34.4 SECONDS (22.8-39.4); INR 1.35 (0.85-1.17); PROTIME 16.6 SECONDS (11.6-15.0)
[2019-10-18 11:10] VITALS: BP 111/65
[2019-10-18 11:22] LABS: ALBUMIN 3.4 g/dL (3.4-5.0); ALKALINE PHOSPHATASE 186 U/L (30-120); ALT (SGPT) 29 U/L (10-68); BILIRUBIN - TOTAL 0.86 mg/dL (0.2-1.3); CKMB 2.3 U/L (0.0-3.6); CREATINE KINASE 168 UL (21-232); PRO BNP 14138 pg/mL (0-450); PROTEIN - SERUM 6.6 g/dL (6.4-8.2)
[2019-10-18 11:23] LABS: D-DIMER-QUANTITATIVE 2.84 ug/mLFEU (0.20-0.54)
[2019-10-18 11:25] LABS: HEMOGLOBIN 7.1 g/dL (13.5-17.5); TROPONIN-I 0.142 ng/mL (0.000-0.060)
--- NOTE | 2019-10-18 12:00 | NUR ---
STOOL GUAIAC - POS.
[2019-10-18 12:10] VITALS: BP 119/88
[2019-10-18 13:00] VITALS: BP 113/69
[2019-10-18 14:04] VITALS: BP 129/69; BMI 30.3
--- NOTE | 2019-10-18 19:39 | NUR ---
RECEIVED BEDSIDE REPORT. PATIENT IS ALERT AND ORIENTED, RESTING COMFORTABLY IN BED. RESPIRATIONS ARE EVEN AND UNLABORED. NO S/S OF DISTRESS. NO C/O PAIN. CALL LIGHT WITHIN REACH. WILL CPOC.
[2019-10-18 20:00] VITALS: BP 110/79
[2019-10-18 20:45] LABS: BASOPHILS 0.4 % (0-2); EOSINOPHILS 1.9 % (0-7); HEMATOCRIT 25.6 % (42.0-54.0); HEMOGLOBIN 7.9 g/dL (13.5-17.5); IMMATURE GRANULOCYTES 0.2 % (0-5); LYMPHOCYTES 16.5 % (15-50); MCH 27.8 pg (26.0-34.0); MCHC 30.9 g/dL (31.0-37.0); MCV 90.1 fL (80.0-100.0); MEAN PLATELET VOLUME 9.2 fL (7.4-10.4); MONOCYTES 14.8 % (2-11); NEUTROPHILS 66.2 % (40-80); PLATELET COUNT 172 10x3/uL (130-400); RBC 2.84 10x6/uL (4.20-6.10); RDW 16.1 % (11.5-14.5); WBC 5.3 10x3/uL (4.8-10.8)
[2019-10-18 21:20] LABS: CKMB 3.2 U/L (0.0-3.6); CREATINE KINASE 226 UL (21-232)
[2019-10-19] VITALS: BP 127/69
[2019-10-19 04:00] VITALS: BP 139/76
[2019-10-19 06:15] LABS: BASOPHILS 0.5 % (0-2); EOSINOPHILS 1.5 % (0-7); HEMATOCRIT 25.8 % (42.0-54.0); HEMOGLOBIN 7.9 g/dL (13.5-17.5); IMMATURE GRANULOCYTES 0.2 % (0-5); LYMPHOCYTES 17.1 % (15-50); MCH 27.7 pg (26.0-34.0); MCHC 30.6 g/dL (31.0-37.0); MCV 90.5 fL (80.0-100.0); MEAN PLATELET VOLUME 9.7 fL (7.4-10.4); MONOCYTES 10.6 % (2-11); NEUTROPHILS 70.1 % (40-80); PLATELET COUNT 196 10x3/uL (130-400); RBC 2.85 10x6/uL (4.20-6.10); RDW 16.3 % (11.5-14.5)
[2019-10-19 06:54] LABS: % SATURATION 21 % (15-55); IRON 77 ug/dl (35-150); TOTAL IRON BIND CAPACITY 364 ug/dl (260-445); UNSAT IRON BIND CAPACITY 287 ug/dl (150-375)
[2019-10-19 07:09] LABS: ALBUMIN 3.4 g/dL (3.4-5.0); ALKALINE PHOSPHATASE 183 U/L (30-120); ALT (SGPT) 26 U/L (10-68); BILIRUBIN - TOTAL 1.14 mg/dL (0.2-1.3); CALC OSMOLALITY 285 mosm/kg (275-300); CALCIUM 9.8 mg/dL (8.5-10.1); CARBON DIOXIDE 26.8 mmol/L (21.0-32.0); CHLORIDE - SERUM 104 mmol/L (98-107); CKMB 2.6 U/L (0.0-3.6); CREATINE KINASE 237 UL (21-232); CREATININE - SERUM 1.5 mg/dL (0.6-1.3); FERRITIN 86 ng/mL (3-244); GLUCOSE 203 mg/dL (74-106); MAGNESIUM - SERUM 1.9 mg/dL (1.8-2.4); POTASSIUM - SERUM 3.4 mmol/L (3.5-5.1); PROTEIN - SERUM 6.7 g/dL (6.4-8.2); SODIUM 139 mmol/L (136-145); UREA NITROGEN 18 mg/dL (7-18); eGFR NON AFRICAN AMERICAN 48 mL/min (90-120)
[2019-10-19 07:11] LABS: TROPONIN-I 0.153 ng/mL (0.000-0.060)
[2019-10-19 09:00] VITALS: BP 156/66
--- NOTE | 2019-10-19 10:13 | NUR ---
URINE SPECIMEN COLLECTED AND TAKEN TO LAB. WILL MONITOR.
[2019-10-19 10:20] LABS: BILIRUBIN NEGATIVE (NEGATIVE); GLUCOSE NEGATIVE (NEGATIVE); KETONE NEGATIVE (NEGATIVE); NITRITE NEGATIVE (NEGATIVE); SPECIFIC GRAVITY 1.015 (1.005-1.020)
[2019-10-19 13:03] VITALS: BP 143/76
[2019-10-19 13:15] VITALS: Ht 180.3 cm; Wt 90.2 kg
[2019-10-19 16:34] VITALS: BP 122/86
--- NOTE | 2019-10-19 18:33 | NUR ---
BLADDER SCAN WITH 231CC RESIDULE.
[2019-10-19 20:00] VITALS: BP 128/81
[2019-10-19 20:02] LABS: CREATININE - URINE 51.2 mg/dL (30-125); PRO/CRE RATIO URINE 0.3 mg/g; PROTEIN - URINE 14.2 mg/dL (0.0-11.9)
[2019-10-20 04:00] VITALS: BP 135/91
[2019-10-20 05:09] LABS: BASOPHILS 0.3 % (0-2); EOSINOPHILS 1.4 % (0-7); HEMATOCRIT 26.1 % (42.0-54.0); IMMATURE GRANULOCYTES 0.2 % (0-5); LYMPHOCYTES 14.4 % (15-50); MCH 27.9 pg (26.0-34.0); MCHC 30.7 g/dL (31.0-37.0); MCV 90.9 fL (80.0-100.0); MEAN PLATELET VOLUME 9.6 fL (7.4-10.4); MONOCYTES 10.1 % (2-11); NEUTROPHILS 73.6 % (40-80); PLATELET COUNT 188 10x3/uL (130-400); RBC 2.87 10x6/uL (4.20-6.10); RDW 16.2 % (11.5-14.5); WBC 5.9 10x3/uL (4.8-10.8)
[2019-10-20 05:25] LABS: ALBUMIN 3.4 g/dL (3.4-5.0); ANION GAP 9.2 mmol/L (8-16); BILIRUBIN - TOTAL 0.9 mg/dL (0.2-1.3); CALCIUM 9.9 mg/dL (8.5-10.1); CARBON DIOXIDE 28.1 mmol/L (21.0-32.0); CREATININE - SERUM 1.5 mg/dL (0.6-1.3); POTASSIUM - SERUM 4.3 mmol/L (3.5-5.1); PROTEIN - SERUM 6.8 g/dL (6.4-8.2)
[2019-10-20 10:05] VITALS: BP 131/89
[2019-10-20 14:08] VITALS: BP 114/71
[2019-10-20 18:23] VITALS: BP 132/82
--- NOTE | 2019-10-20 19:00 | NUR ---
RECEIVED BEDSIDE REPORT. PATIENT IS ALERT AND ORIENTATED. PATIENT IS RESTING COMFORTABLY AND CALL LIGHT IS IN REACH.
[2019-10-20 20:00] VITALS: BP 124/78
[2019-10-21] VITALS: BP 119/64
[2019-10-21 04:00] VITALS: BP 112/65
--- NOTE | 2019-10-21 05:13 | NUR ---
PATIENT SLEPT SOME LAST NIGHT, BUT IS UP NOW. HE HAS BEEN NPO SINCE NIDNIGHT FOR EGD IN AM. I ANSWERED SOME QUESTIONS ABOUT THE EGD FOR THE PATIENT.
[2019-10-21 06:26] LABS: ALBUMIN 3.6 g/dL (3.4-5.0); ANION GAP 13.1 mmol/L (8-16); CALCIUM 9.5 mg/dL (8.5-10.1); CARBON DIOXIDE 26.2 mmol/L (21.0-32.0); CREATININE - SERUM 1.6 mg/dL (0.6-1.3); MAGNESIUM - SERUM 1.9 mg/dL (1.8-2.4); POTASSIUM - SERUM 4.3 mmol/L (3.5-5.1); PROTEIN - SERUM 6.5 g/dL (6.4-8.2)
[2019-10-21 06:31] LABS: BASOPHILS 0.8 % (0-2); EOSINOPHILS 1.7 % (0-7); HEMATOCRIT 25.9 % (42.0-54.0); HEMOGLOBIN 8.2 g/dL (13.5-17.5); IMMATURE GRANULOCYTES 0.2 % (0-5); LYMPHOCYTES 20.8 % (15-50); MCH 28.1 pg (26.0-34.0); MCHC 31.7 g/dL (31.0-37.0); MEAN PLATELET VOLUME 9.8 fL (7.4-10.4); MONOCYTES 11.6 % (2-11); NEUTROPHILS 64.9 % (40-80); PLATELET COUNT 199 10x3/uL (130-400); RBC 2.92 10x6/uL (4.20-6.10); RDW 15.9 % (11.5-14.5)
[2019-10-21 06:37] LABS: MCV 88.7 fL (80.0-100.0)
--- NOTE | 2019-10-21 07:00 | NUR ---
BEDSIDE REPORT RECEIVED. SHIFT ASSESSMENT COMPLETED PER FLOWSHEET, SEE FLOWSHEET FOR INFORMATION. PT DENIES ANY ACUTE NEEDS OR DISTRESS NOTED AT THIS TIME. WILL CONT TO MONITOR.
[2019-10-21 08:00] VITALS: BP 124/71
[2019-10-21 12:00] VITALS: BP 112/63
--- NOTE | 2019-10-21 13:27 | NUR ---
Nutrition Follow-up: NPO for EGD today. Has been eating well. -BM. Diet: NPO PO intake: 100% x 6 meals Wt: 209# (10/20); 217# (10/17) Labs reviewed Meds noted: Lasix, KDur, Protonix, Humalog, electrolyte protocol -Rec resume diet following EGD as medically feasible. -Monitor wt; noted daily wts ordered. -RD following.
--- NOTE | 2019-10-21 13:40 | NUR ---
PT TAKEN TO GI LAB FOR EGD. WILL CONT TO MONITOR.
--- NOTE | 2019-10-21 19:37 | NUR ---
RECEIVED BEDSIDE REPORT. PATIENT IS ALERT AND ORIENTED, SITTING UP ON SIDE OF BED. RESPIRATIONS ARE EVEN AND UNLABORED. NO S/S OF DISTRESS. NO C/O PAIN. CALL LIGHT WITHIN REACH. WILL CPOC.
[2019-10-21 20:30] VITALS: BP 123/75
[2019-10-22 04:30] VITALS: BP 110/64
[2019-10-22 05:12] LABS: BASOPHILS 0.4 % (0-2); EOSINOPHILS 1.5 % (0-7); HEMATOCRIT 28.8 % (42.0-54.0); IMMATURE GRANULOCYTES 0.2 % (0-5); MCH 28.1 pg (26.0-34.0); MCHC 31.3 g/dL (31.0-37.0); MEAN PLATELET VOLUME 9.5 fL (7.4-10.4); MONOCYTES 11.8 % (2-11); NEUTROPHILS 67.1 % (40-80); PLATELET COUNT 194 10x3/uL (130-400); RDW 15.6 % (11.5-14.5); WBC 5.4 10x3/uL (4.8-10.8)
[2019-10-22 05:41] LABS: ALBUMIN 3.3 g/dL (3.4-5.0); ANION GAP 12.4 mmol/L (8-16); BILIRUBIN - TOTAL 0.91 mg/dL (0.2-1.3); CALCIUM 10.1 mg/dL (8.5-10.1); CREATININE - SERUM 1.6 mg/dL (0.6-1.3); MAGNESIUM - SERUM 2.1 mg/dL (1.8-2.4); POTASSIUM - SERUM 4.4 mmol/L (3.5-5.1); PROTEIN - SERUM 6.6 g/dL (6.4-8.2)
--- NOTE | 2019-10-22 07:15 | NUR ---
RECEIVED PT SITTING ON SIDE OF BED AAOX4 RESP UNLABORED SKIN W/D COLOR WNL DENIES ANY PAIN OR DISCOMFORT NAD NOTED
[2019-10-22 13:04] VITALS: BP 121/73
[2019-10-22 18:00] VITALS: BP 103/69
[2019-10-22 20:30] VITALS: BP 139/59
--- NOTE | 2019-10-23 00:20 | NUR ---
INITIAL ROUNDS COMPLETED AT 1905 HRS. PT DENIED ANY DISCOMFORT. ASSESSMENT COMPLETED AT 2009 HRS. VSS. SR PER CM HR 90. ALERT AND ORIENTED TO PERSON, PLACE AND TIME. CANCINO. IV TO L WRIST SL. LUNGS DIMINISHED IN BASES BILAT. PM FSBS 164. 2 UNITS INSULIN GIVEN SUB-Q TO UPPER ARM. PM MEDS GIVEN. PM SNACK SERVED. PT CURRENTLY RESTING WITH EYES CLOSED. RESP EVEN AND REGULAR. SR UP X1, CALL LIGHT WITHIN REACH.
--- NOTE | 2019-10-23 03:18 | NUR ---
PT RESTING WITH EYES CLOSED. RESP EVEN AND REGULAR. SR UP X1, CALL LIGHT WITHIN REACH.
[2019-10-23 04:30] VITALS: BP 105/63
[2019-10-23 05:38] LABS: HEMATOCRIT 28.7 % (42.0-54.0); HEMOGLOBIN 8.7 g/dL (13.5-17.5); LYMPHOCYTES 19.3 % (15-50); MCH 28.1 pg (26.0-34.0); MCHC 30.3 g/dL (31.0-37.0); MEAN PLATELET VOLUME 9.2 fL (7.4-10.4); NEUTROPHILS 67.7 % (40-80); PLATELET COUNT 208 10x3/uL (130-400); RDW 16.3 % (11.5-14.5); WBC 5.6 10x3/uL (4.8-10.8)
[2019-10-23 05:39] LABS: MCV 92.6 fL (80.0-100.0)
[2019-10-23 05:57] LABS: ALBUMIN 3.3 g/dL (3.4-5.0); ANION GAP 9.6 mmol/L (8-16); BILIRUBIN - TOTAL 0.71 mg/dL (0.2-1.3); CALCIUM 10.3 mg/dL (8.5-10.1); CARBON DIOXIDE 31.5 mmol/L (21.0-32.0); CREATININE - SERUM 1.8 mg/dL (0.6-1.3); MAGNESIUM - SERUM 2.1 mg/dL (1.8-2.4); POTASSIUM - SERUM 4.1 mmol/L (3.5-5.1); PROTEIN - SERUM 6.5 g/dL (6.4-8.2)
--- NOTE | 2019-10-23 06:30 | NUR ---
VSS THROUGHOUT NIGHT. SR PER CM. PT RESTED WELL DURING SHIFT. NEEDS MET; WILL CONTINUE TO MONITOR.
[2019-10-23 15:11] VITALS: BP 108/60
[2019-10-23 17:55] VITALS: BP 106/63
[2019-10-23 20:30] VITALS: BP 114/70
--- NOTE | 2019-10-23 23:50 | NUR ---
INITIAL ROUNDS COMPLETED AT 191 HRS. PT DENIED ANY DISCOMOFRT. ASSESSMENT COMPLETED AT 1944 HRS. VSS. SR PER CM HR 86. ALERT AND ORIENTED TO PERSON, PLACE AND TIME. CANCINO. IV TO L WRIST SL. LUNGS DIMINISHED IN BASES BILAT. O2 2LNC. PM FSBS 179. 2 UNITS INUSLIN GOVEN SUB-Q PER S/S TO R ARM. PM MEDS GIVEN. PT CURRENTLY RESTING WITH EYES CLOSED. RESP EVEN AND REGULAR. SR UP X1,CALL LIGHT WITHIN REACH.
[2019-10-24 00:30] VITALS: BP 102/57
--- NOTE | 2019-10-24 02:18 | NUR ---
PT RESTING WITH EYES CLOSED. RESP EVEN AND REGULAR. CALL LIGHT WITHIN REACH.
--- NOTE | 2019-10-24 04:14 | NUR ---
PT AWAKE, DENIES ANY DISCOMFORT. CALL LIGHT WITHIN REACH.
[2019-10-24 04:30] VITALS: BP 106/59
--- NOTE | 2019-10-24 06:07 | NUR ---
VSS THROUGHOUT NIGHT. SR PER CM. PT DENIED ANY DISCOMFORT. NEEDS MET; WILL CONTINUE TO MONITOR.
[2019-10-24 06:27] LABS: HEMATOCRIT 31.7 % (42.0-54.0); HEMOGLOBIN 9.8 g/dL (13.5-17.5); LYMPHOCYTES 19.3 % (15-50); MCH 28.3 pg (26.0-34.0); MCHC 30.9 g/dL (31.0-37.0); MCV 91.6 fL (80.0-100.0); MEAN PLATELET VOLUME 9.7 fL (7.4-10.4); NEUTROPHILS 67.2 % (40-80); PLATELET COUNT 215 10x3/uL (130-400); RBC 3.46 10x6/uL (4.20-6.10); RDW 16.1 % (11.5-14.5); WBC 5.7 10x3/uL (4.8-10.8)
[2019-10-24 06:51] LABS: ALBUMIN 3.6 g/dL (3.4-5.0); ANION GAP 8.4 mmol/L (8-16); BILIRUBIN - TOTAL 0.79 mg/dL (0.2-1.3); CALCIUM 10.2 mg/dL (8.5-10.1); CARBON DIOXIDE 34.8 mmol/L (21.0-32.0); CREATININE - SERUM 1.8 mg/dL (0.6-1.3); POTASSIUM - SERUM 4.2 mmol/L (3.5-5.1); PROTEIN - SERUM 6.5 g/dL (6.4-8.2)
[2019-10-24 09:51] VITALS: BP 117/68
[2019-10-24 11:00] VITALS: BP 111/57
[2019-10-24 15:00] VITALS: BP 107/59
--- NOTE | 2019-10-24 16:32 | MORECARE ---
CASE MANAGEMENT DISCHARGE SUMMARY PATIENT: NATY COLIN JR UNIT: [id number] ADM DATE: 10/18/19 AGE: 79 : 42 SEX: M ROOM/BED: D.2115 AUTHOR: MOJGAN MUIR PHYSICIAN: REFERRING PHYSICIAN: SYD FREY MD DATE OF SERVICE: 10/24/19 Discharge Plan Patient Name: NATY COLIN Facility: [facility]:[place] : 1940 Planned Disposition: Home with Home Health Anticipated Discharge Date: Discharge Date: Expected LOS: Initial Reviewer: [email or web address] Initial Review Date: 10/24/2019 Generated: 10/24/19 5:31 pm Patient Name: NATY COLIN Page [id number] at 1632 All edits/amendments must be made on the electronic document DICTATION DATE: 10/24/19 1632 FINISHING LAB TECHNICIAN: KARISSA 10/24/19 1632 RPT#: [id number] DC DATE: STATUS: ADM IN [facility] [address] [place] [address] END OF REPORT
--- NOTE | 2019-10-24 16:40 | MORECARE ---
CASE MANAGEMENT DISCHARGE SUMMARY PATIENT: NATY COLIN JR UNIT: [id number] ADM DATE: 10/18/19 AGE: 79 : 42 SEX: M ROOM/BED: D.2115 AUTHOR: MOJGAN MUIR PHYSICIAN: REFERRING PHYSICIAN: SYD FREY MD DATE OF SERVICE: 10/24/19 Discharge Plan Patient Name: NATY COLIN [facility] [facility] 1940 Planned Disposition: Home with Home Health Anticipated Discharge Date: Discharge Date: Expected LOS: Initial Reviewer: [email or web address] Initial Review Date: 10/24/2019 Generated: 10/24/19 5:39 pm DCPIA - Discharge Planning Initial Assessment Updated by [email or web address]: Coreen Nielson on 10/24/19 4:32 pm * Is the patient Alert and Oriented? Yes * PCP Staci Rhodes at Dr. Frey's office * Pharmacy [facility] * Preadmission Environment Home Alone * ADLs Independent * Equipment Nebulizer Other Oxygen * Other Equipment Portable oxygen * List name and contact numbers for known caregivers / representatives who currently or will assist patient after discharge: Scotty Dong [facility] - [phone] * Verbal permission to speak to the caregivers and representatives has been obtained from the patient. Yes * Community resources currently utilized Home Health * Additional services required to return to the preadmission environment? No * Can the patient safely return to the preadmission environment? Yes * Has this patient been hospitalized within the prior 30 days at any hospital? Yes Last DP export: 10/24/19 3:32 p Patient Name: NATY COLIN Page [id number] at 1640 All edits/amendments must be made on the electronic document DICTATION DATE: 10/24/19 1639 MAIL CARRIER AND CLERK: KARISSA 10/24/19 1639 RPT#: [id number] DC DATE: STATUS: ADM IN [facility] [address] [place] [address] END OF REPORT
--- NOTE | 2019-10-24 16:47 | MORECARE ---
CASE MANAGEMENT DISCHARGE SUMMARY PATIENT: NATY COLIN JR UNIT: [id number] ADM DATE: 10/18/19 AGE: 79 : 42 SEX: M ROOM/BED: D.1105 AUTHOR: ISADORA,DOC PHYSICIAN: REFERRING PHYSICIAN: SYD FREY MD DATE OF SERVICE: 10/24/19 Discharge Plan Patient Name: NATY COLIN Facility: [facility]:[place] : 1940 Planned Disposition: Home with Home Health Anticipated Discharge Date: Discharge Date: Expected LOS: Initial Reviewer: [email or web address] Initial Review Date: 10/24/2019 Generated: 10/24/19 5:46 pm Comments DCP- Discharge Planning Updated by [email or web address]: Coreen Nielson on 10/24/19 3:[address] Patient Name: NATY COLIN Admission Status: ER Accout number: [id number] Admission Date: 10-18-2019 : 1940 Admission Diagnosis:SHORTNESS OF BREATH Attending: SYD FREY Current LOS: 6 Anticipated DC Date: Planned Disposition: Home with Home Health Primary Insurance: MEDICARE A & B Discharge Planning Comments: CM met with patient to complete initial dc planning assessment. CM educated patient on the CM role and verbal consent given by patient to complete assessment. Patient lives at home alone. At discharge patient plans to return and feels this is a safe discharge. CM discussed availability of home health, rehab services, and medical equipment. Patient denies need for rehab at this time. States he will probably need to take a taxi home. States he does have home health with [facility] and plans on continuing this. They see him for nursing and PT. PATSY for [facility] signed. CM will continue to follow and will assist as needed with dc plans/needs. Crusher Plant Operator: Coreen Nielson DCPIA - Discharge Planning Initial Assessment Updated by [email or web address]: Coreen Nielson on 10/24/19 4:32 pm * Is the patient Alert and Oriented? Yes * PCP Staci Rhodes at Dr. Frey's office * Pharmacy [facility] * Preadmission Environment Home Alone * ADLs Independent * Equipment Nebulizer Other Oxygen * Other Equipment Portable oxygen * List name and contact numbers for known caregivers / representatives who currently or will assist patient after discharge: Scotty Dong - [facility] - [phone] * Verbal permission to speak to the caregivers and representatives has been obtained from the patient. Yes * Community resources currently utilized Home Health * Additional services required to return to the preadmission environment? No * Can the patient safely return to the preadmission environment? Yes * Has this patient been hospitalized within the prior 30 days at any hospital? Yes Coverage Notice Reviewer: [email or web address] Natty Nielson Notice Issued Date-Time: 10/24/2019 16:41 Notice Type: Patient Choice Letter Notice Delivered To: Patient Relationship to Patient: Self Motor Vehicle Emissions Inspector Name: Delivery Method: HAND - Hand Delivered Zehra Days: Prior Verbal Notification: Recipient Understood Notice: Yes Recipient Signature: Yes Med Rec Note Co-signed by Attending: Coverage Notice Comment: PATSY for [facility] Last DP export: 10/24/19 3:40 p Patient Name: NATY COLIN Page [id number] at 1647 All edits/amendments must be made on the electronic document DICTATION DATE: 10/24/191645 FOAM TANK LAMINATOR: KARISSA 10/24/191645 RPT#: [id number] DC DATE: STATUS: ADM IN [facility] [address] [place] [address] END OF REPORT
--- NOTE | 2019-10-24 19:00 | NUR ---
RECEIVED BEDSIDE REPORT. PATIENT ALERT AND ORIENTED, RESTING COMFORTABLY IN BED. RESPIRATIONS EVEN AND UNLABORED. NO S/S OF DISTRESS. NO C/OPAIN. CALL LIGHT WITHIN REACH. WILL CPOC.
[2019-10-24 21:51] VITALS: BP 112/64
[2019-10-25] VITALS (7 sets, daily range): BP systolic 97–118; BP diastolic 47–64
[2019-10-25 07:43] LABS: BASOPHILS 0.7 % (0-2); HEMATOCRIT 31.8 % (42.0-54.0); HEMOGLOBIN 9.9 g/dL (13.5-17.5); IMMATURE GRANULOCYTES 0.2 % (0-5); LYMPHOCYTES 19.9 % (15-50); MCH 28.1 pg (26.0-34.0); MCHC 31.1 g/dL (31.0-37.0); MCV 90.3 fL (80.0-100.0); MEAN PLATELET VOLUME 9.8 fL (7.4-10.4); MONOCYTES 11.8 % (2-11); NEUTROPHILS 65.4 % (40-80); PLATELET COUNT 236 10x3/uL (130-400); RBC 3.52 10x6/uL (4.20-6.10); RDW 15.7 % (11.5-14.5); WBC 5.4 10x3/uL (4.8-10.8)
[2019-10-25 07:52] LABS: ANION GAP 11.2 mmol/L (8-16); CALCIUM 10.4 mg/dL (8.5-10.1); CARBON DIOXIDE 31.3 mmol/L (21.0-32.0); CREATININE - SERUM 1.7 mg/dL (0.6-1.3); POTASSIUM - SERUM 4.5 mmol/L (3.5-5.1)
--- NOTE | 2019-10-25 12:22 | NUR ---
Nutrition Follow-up: Eating well overall. Not happy that he is on a cardiac diet; attempted to explain the need for it and that it is a doctor's order. Pt v/u and stated that he was going to talk to his doctor about it. Diet: Cardiac, Diabetic PO intake: 75-100% Wt: 201.7# (10/24); 211# (10/18) Last BM: 10/24 Labs noted: Na 135, Glu 237, Ca 10.4 Meds noted: Lasix, KDur, Protonix, Humalog, electrolyte protocol -Encourage PO intake and honor food preferences within diet restrictions. -Monitor wt; noted daily wts ordered. -RD following.
[2019-10-26 04:05] VITALS: BP 107/56
[2019-10-26 06:16] LABS: BASOPHILS 0.4 % (0-2); EOSINOPHILS 1.7 % (0-7); HEMATOCRIT 30.9 % (42.0-54.0); HEMOGLOBIN 9.7 g/dL (13.5-17.5); IMMATURE GRANULOCYTES 0.2 % (0-5); MCH 28.1 pg (26.0-34.0); MCHC 31.4 g/dL (31.0-37.0); MCV 89.6 fL (80.0-100.0); MEAN PLATELET VOLUME 9.7 fL (7.4-10.4); MONOCYTES 9.9 % (2-11); NEUTROPHILS 70.8 % (40-80); PLATELET COUNT 218 10x3/uL (130-400); RBC 3.45 10x6/uL (4.20-6.10); RDW 15.4 % (11.5-14.5); WBC 5.4 10x3/uL (4.8-10.8)
[2019-10-26 06:40] LABS: ANION GAP 10.6 mmol/L (8-16); CARBON DIOXIDE 31.6 mmol/L (21.0-32.0); CREATININE - SERUM 1.8 mg/dL (0.6-1.3); POTASSIUM - SERUM 4.2 mmol/L (3.5-5.1)
[2019-10-26 09:00] VITALS: BP 109/59
[2019-10-26] MEDS ORDERED: METOLAZONE2.5 MG PO (09:05)
--- NOTE | 2019-10-26 09:30 | MORECARE ---
CASE MANAGEMENT DISCHARGE SUMMARY PATIENT: NATY COLIN JR UNIT: [id number] ADM DATE: 10/18/19 AGE: 79 : 42 SEX: M ROOM/BED: D.6695 AUTHOR: ISADORA,DOC PHYSICIAN: REFERRING PHYSICIAN: SYD FREY MD DATE OF SERVICE: 10/26/19 Discharge Plan Patient Name: NATY COLIN Facility: [facility]:[place] : 1940 Planned Disposition: Home with Home Health Anticipated Discharge Date: Discharge Date: Expected LOS: Initial Reviewer: [email or web address] Initial Review Date: 10/24/2019 Generated: 10/26/19 10:29 am Comments DCP- Discharge Planning Updated by [email or web address]: Coreen Nielson on 10/24/19 3:[address] Patient Name: NATY COLIN Admission Status: ER Accout number: [id number] Admission Date: 10-18-2019 : 1940 Admission Diagnosis:SHORTNESS OF BREATH Attending: SYD FREY Current LOS: 6 Anticipated DC Date: Planned Disposition: Home with Home Health Primary Insurance: MEDICARE A & B Discharge Planning Comments: CM met with patient to complete initial dc planning assessment. CM educated patient on the CM role and verbal consent given by patient to complete assessment. Patient lives at home alone. At discharge patient plans to return and feels this is a safe discharge. CM discussed availability of home health, rehab services, and medical equipment. Patient denies need for rehab at this time. States he will probably need to take a taxi home. States he does have home health with [facility] and plans on continuing this. They see him for nursing and PT. PATSY for [facility] signed. CM will continue to follow and will assist as needed with dc plans/needs. Goodwill Ambassador: Coreen Nielson DCPIA - Discharge Planning Initial Assessment Updated by [email or web address]: Coreen Nielson on 10/24/19 4:32 pm * Is the patient Alert and Oriented? Yes * PCP Staci Rhodes at Dr. Frey's office * Pharmacy [facility] * Preadmission Environment Home Alone * ADLs Independent * Equipment Nebulizer Other Oxygen * Other Equipment Portable oxygen * List name and contact numbers for known caregivers / representatives who currently or will assist patient after discharge: Scotty Dong - [facility] - [phone] * Verbal permission to speak to the caregivers and representatives has been obtained from the patient. Yes * Community resources currently utilized Home Health * Additional services required to return to the preadmission environment? No * Can the patient safely return to the preadmission environment? Yes * Has this patient been hospitalized within the prior 30 days at any hospital? Yes External Providers External Provider: [facility] Next Contact Date: Service Request Date: Service Type: Resolution: Reviewer: Comments: Coverage Notice Reviewer: [email or web address] Natty Nielson Notice Issued Date-Time: 10/24/2019 16:41 Notice Type: Patient Choice Letter Notice Delivered To: Patient Relationship to Patient: Self Overcoil Stepper Name: Delivery Method: HAND - Hand Delivered Zehra Days: Prior Verbal Notification: Recipient Understood Notice: Yes Recipient Signature: Yes Med Rec Note Co-signed by Attending: Coverage Notice Comment: PATSY for [facility] Last DP export: 10/24/19 3:47 p Patient Name: NATY COLIN Page 02124 at 0930 All edits/amendments must be made on the electronic document DICTATION DATE: 10/26/19928 HOSPICE FELLOW: KARISSA 10/26/19928 RPT#: [id number] DC DATE: STATUS: ADM IN [facility] [address] [place] [address] END OF REPORT
--- NOTE | 2019-10-26 10:15 | MORECARE ---
CASE MANAGEMENT DISCHARGE SUMMARY PATIENT: NATY COLIN JR UNIT: [id number] ADM DATE: 10/18/19 AGE: 79 : 42 SEX: M ROOM/BED: D.9785 AUTHOR: ISADORA,DOC PHYSICIAN: REFERRING PHYSICIAN: SYD FREY MD DATE OF SERVICE: 10/26/19 Discharge Plan Patient Name: NATY COLIN Facility: [facility]:[place] : 1940 Planned Disposition: Home with Home Health Anticipated Discharge Date: Discharge Date: Expected LOS: Initial Reviewer: [email or web address] Initial Review Date: 10/24/2019 Generated: 10/26/19 11:15 am Comments DCP- Discharge Planning Updated by [email or web address]: Coreen Nielson on 10/26/19 9:[address] Patient Name: ANTY COLIN Encounter No: [id number] : 1940 Primary Insurance: MEDICARE A & B Anticipated DC Date: Planned Disposition: Home with Home Health External Planned Provider: : DCP follow-up note: Patient and family in agreement with discharge plan. No changes to plan. States he has money for a cab and will take the taxi home. Case management will follow and assist as needed. Coreen Nielson DCP- Discharge Planning Updated by [email or web address]: Coreen Nielson on 10/24/19 3:[address] Patient Name: NATY COLIN Admission Status: ER Accout number: [id number] Admission Date: 10-18-2019 : 1940 Admission Diagnosis:SHORTNESS OF BREATH Attending: SYD FREY Current LOS: 6 Anticipated DC Date: Planned Disposition: Home with Home Health Primary Insurance: MEDICARE A & B Discharge Planning Comments: CM met with patient to complete initial dc planning assessment. CM educated patient on the CM role and verbal consent given by patient to complete assessment. Patient lives at home alone. At discharge patient plans to return and feels this is a safe discharge. CM discussed availability of home health, rehab services, and medical equipment. Patient denies need for rehab at this time. States he will probably need to take a taxi home. States he does have home health with [facility] and plans on continuing this. They see him for nursing and PT. PATSY for [facility] signed. CM will continue to follow and will assist as needed with dc plans/needs. Link Assembler: Coreen Naga DCPIA - Discharge Planning Initial Assessment Updated by KELY: Coreen Nielson on 10/24/19 4:32 pm * Is the patient Alert and Oriented? Yes * PCP Staci Rhodes at Dr. Frey's office * Pharmacy [facility] * Preadmission Environment Home Alone * ADLs Independent * Equipment Nebulizer Other Oxygen * Other Equipment Portable oxygen * List name and contact numbers for known caregivers / representatives who currently or will assist patient after discharge: Scotty Dong - [facility] - [phone] * Verbal permission to speak to the caregivers and representatives has been obtained from the patient. Yes * Community resources currently utilized Home Health * Additional services required to return to the preadmission environment? No * Can the patient safely return to the preadmission environment? Yes * Has this patient been hospitalized within the prior 30 days at any hospital? Yes Coverage Notice Reviewer: [email or web address] Nielson Notice Issued Date-Time: 10/24/2019 16:41 Notice Type: Patient Choice Letter Notice Delivered To: Patient Relationship to Patient: Self Mechanical Product Design Engineer Name: Delivery Method: HAND - Hand Delivered Zehra Days: Prior Verbal Notification: Recipient Understood Notice: Yes Recipient Signature: Yes Med Rec Note Co-signed by Attending: Coverage Notice Comment: PATSY for [facility] ELLIS Reviewer: [id number] Nielson Notice Issued Date-Time: 10/26/2019 10:13 Notice Type: IM Discharge Notice Notice Delivered To: Patient Relationship to Patient: Self Mechanical Product Design Engineer Name: Delivery Method: HAND - Hand Delivered Zehra Days: Prior Verbal Notification: Recipient Understood Notice: Yes Recipient Signature: Yes Med Rec Note Co-signed by Attending: Coverage Notice Comment: IMM explained, signed, given, copy placed in MR Last DP export: 10/26/19 8:30 a Patient Name: NATY COLIN Page [phone] at 1015 All edits/amendments must be made on the electronic document DICTATION DATE: 10/26/19 1015 FIELD TECHNICAL ASSISTANT: KARISSA 10/26/19 1015 RPT#: [id number] DC DATE: STATUS: ADM IN [facility] [address] [place] [address] END OF REPORT
[2019-10-26 11:00] VITALS: BP 108/57
--- NOTE | 2019-10-26 12:49 | NUR ---
DC ORDER RECEIVED PIV DC'D CATH TIP INTACT. PT TOLERATED WELL. NO EVIDENCE OF BLEEDING. PT SIGNED DC PAPERWORK. REPORTS HE WILL CALL A TAXI TO TAKE HIM HOME.
== END 2019-10-26 13:34 | disposition home health service (06) | DRG 291 ==
LOC: D.ER 10:08 → D.M2 12:42 → D.SDCHOLD 13:31 → D.M2 13:37
PROVIDERS: Family Medicine; Internal Medicine; Internal Medicine Gastroenterology; ADMIT Family Medicine; ATTEND Family Medicine
PROC: 0DJ08ZZ Inspection of Upper Intestinal Tract, Via Natural or Artificial Opening Endoscopic (ICD-10-PCS; principal; 2019-10-21 13:30)
DX: I13.0 Hypertensive heart and chronic kidney disease with heart failure and stage 1 through stage 4 chronic kidney disease, or unspecified chronic kidney disease (principal); I50.31 Acute diastolic (congestive) heart failure; J96.21 Acute and chronic respiratory failure with hypoxia; N17.9 Acute kidney failure, unspecified; D62 Acute posthemorrhagic anemia; I82.502 Chronic embolism and thrombosis of unspecified deep veins of left lower extremity; I25.110 Atherosclerotic heart disease of native coronary artery with unstable angina pectoris; E11.65 Type 2 diabetes mellitus with hyperglycemia; N18.9 Chronic kidney disease, unspecified; E11.22 Type 2 diabetes mellitus with diabetic chronic kidney disease; D63.1 Anemia in chronic kidney disease; E78.5 Hyperlipidemia, unspecified; R19.5 Other fecal abnormalities; Z79.01 Long term (current) use of anticoagulants; Z86.73 Personal history of transient ischemic attack (TIA), and cerebral infarction without residual deficits; J44.9 Chronic obstructive pulmonary disease, unspecified; N40.0 Benign prostatic hyperplasia without lower urinary tract symptoms; D50.9 Iron deficiency anemia, unspecified; E55.9 Vitamin D deficiency, unspecified; J30.9 Allergic rhinitis, unspecified

== ENCOUNTER 2019-11-30 10:17 | Inpatient (IN) | payer OTHER ==
[~2019-11-30] VITALS: Ht 180.3 cm; Wt 81.1 kg
[~2019-11-30 10:17] MED LIST changes: +METOLAZONE2.5 MG PO
[2019-11-30 11:00] VITALS: BP 120/70
[2019-11-30 11:38] LABS: APTT 35.5 SECONDS (22.8-39.4); INR 1.77 (0.85-1.17); PROTIME 20.4 SECONDS (11.6-15.0)
[2019-11-30 11:45] LABS: CALC OSMOLALITY 283 mosm/kg (275-300); CALCIUM 10.7 mg/dL (8.5-10.1); CARBON DIOXIDE 26.7 mmol/L (21.0-32.0); CHLORIDE - SERUM 103 mmol/L (98-107); CREATININE - SERUM 1.6 mg/dL (0.6-1.3); SODIUM 137 mmol/L (136-145); UREA NITROGEN 30 mg/dL (7-18); eGFR NON AFRICAN AMERICAN 45 mL/min (90-120)
[2019-11-30 11:47] LABS: GLUCOSE 169 mg/dL (74-106)
[2019-11-30 11:48] LABS: BASOPHILS 0.7 % (0-2); EOSINOPHILS 2.5 % (0-7); HEMATOCRIT 21.4 % (42.0-54.0); IMMATURE GRANULOCYTES 0.1 % (0-5); MCH 27.7 pg (26.0-34.0); MCHC 30.8 g/dL (31.0-37.0); MCV 89.9 fL (80.0-100.0); MEAN PLATELET VOLUME 9.2 fL (7.4-10.4); MONOCYTES 7.9 % (2-11); NEUTROPHILS 66.8 % (40-80); PLATELET COUNT 222 10x3/uL (130-400); RBC 2.38 10x6/uL (4.20-6.10); RDW 15.4 % (11.5-14.5); WBC 6.8 10x3/uL (4.8-10.8)
[2019-11-30 11:55] LABS: HEMOGLOBIN 6.6 g/dL (13.5-17.5)
[2019-11-30 11:56] LABS: ALBUMIN 3.7 g/dL (3.4-5.0); ALKALINE PHOSPHATASE 165 U/L (30-120); ALT (SGPT) 30 U/L (10-68); CKMB 2.9 U/L (0.0-3.6); CREATINE KINASE 138 UL (21-232); PRO BNP 8507 pg/mL (0-450); PROTEIN - SERUM 6.9 g/dL (6.4-8.2)
[2019-11-30 11:58] LABS: TROPONIN-I 0.106 ng/mL (0.000-0.060)
[2019-11-30 12:00] VITALS: BP 130/74
--- NOTE | 2019-11-30 12:41 | NUR ---
ATTEMPTED TO GIVE REPORT. NURSE NOT AVAILABLE.
[2019-11-30 12:51] VITALS: BP 117/71
--- NOTE | 2019-11-30 12:59 | NUR ---
ATTEMPTED TO GIVE REPORT. NURSE NOT AVAILABLE.
--- NOTE | 2019-11-30 13:27 | NUR ---
VANCOMYCIN 66 ML REMAINING AT TRANSFER TO ROOM. INFUSING OVER 60 MIN
[2019-11-30 14:07] VITALS: BP 117/71; BMI 24.4
[2019-11-30 14:26] VITALS: BP 105/74
[2019-11-30 18:31] LABS: CKMB 3.4 U/L (0.0-3.6); CREATINE KINASE 143 UL (21-232); TROPONIN-I 0.121 ng/mL (0.000-0.060)
--- NOTE | 2019-11-30 19:30 | NUR ---
PT UP ON SIDE OF BED, AAO X 3, RESP EVEN AND UNLABORED. NO DISTRESS NOTED, CL IN REACH.
[2019-11-30 20:00] VITALS: BP 139/75
[2019-12-01] VITALS: BP 115/66
[2019-12-01 01:38] LABS: CREATINE KINASE 152 UL (21-232)
[2019-12-01 01:39] LABS: TROPONIN-I 0.114 ng/mL (0.000-0.060)
[2019-12-01 04:00] VITALS: BP 121/72
--- NOTE | 2019-12-01 07:09 | NUR ---
PT NOT CLEAR FOR COLONOSCOPY. PAGED AT THIS TIME.
[2019-12-01 08:00] VITALS: BP 109/58
--- NOTE | 2019-12-01 08:20 | HP ---
PATIENT: NATY COLIN JR MEDICAL RECORD: [id number] ACCOUNT: [id number] LOCATION:[address] : 44 ADMISSION DATE: 11/30/19 PCP: DAYDAY HALEY HISTORY AND PHYSICAL EXAMINATION DATE OF ADMISSION: 11/30/2019 CHIEF COMPLAINT: Worsening shortness of breath. HISTORY OF PRESENT ILLNESS: A 79-year-old white male with a history of hypertension and chronic kidney disease, anemia, lower extremity edema, COPD, diabetes, past history of CVA, comes in today with increasing dyspnea over the last couple of weeks, it really got worse, prompting him to come to the ER. He was seen by nephrology, gastroenterology, and cardiology within the last week or so and some of his medicines have been adjusted. In the Emergency Department, his hemoglobin was down to 6.6, hematocrit 21.4. His creatinine was 1.6, which is fairly stable for him. Glucose 169, troponin mildly elevated at 0.106. ProBNP 8507. Chest x-ray was read as worsening right lower lobe pneumonia with moderate right pleural effusion. He is admitted for further evaluation. PAST MEDICAL AND SURGICAL HISTORY: Hypertension, stage III chronic kidney disease, ongoing anemia with a history of heme-positive stools. He saw Dr. Mora recently who recommends a colonoscopy, but wanted cardiology to clear him first. He has COPD, lower extremity edema, type 2 diabetes, and had a history of stroke. PAST SURGICAL HISTORY: Coronary stents, ganglion cyst removal, and pacemaker placed. ALLERGIES: POSSIBLY TO IV DYE. HOME MEDICATIONS: Currently not taking metformin. He is taking glipizide 10 mg twice a day, Xarelto 20 mg once a day for DVT, iron sulfate 325 mg once a day, vitamin D3 2000 units once a day, Symbicort 180-4.5 one puff a day, DuoNeb 4 times a day, pravastatin 10 mg a day, Plavix 75 mg a day, he has reportedly been on Lasix 40 mg twice a day. He has recently been stopped on metolazone 2.5 mg and metoprolol XL 25 and losartan 100 due to low blood pressure. HABITS: Former smoker, no alcohol or drugs. SOCIAL HISTORY: He is retired and lives alone. He is a . FAMILY HISTORY: Father of diabetes complications. Sister of breast cancer. Father had a history of alcohol abuse, arthritis and heart disease. Mother due to diabetes complications. REVIEW OF SYSTEMS: GENERAL: No major weight changes. HEENT: No particular sinus or allergy problems. RESPIRATORY: Has history of COPD and has been seen by tank truck milk receiver here. CARDIOLOGY: He has history of stents and pacemaker followed by [facility]. GASTROINTESTINAL: Followed by Dr. Mora. He had an EGD just last month showing minor reflux changes at the GE junction, a small hiatal hernia. MUSCULOSKELETAL: Few joint aches and pains. HISTORY AND PHYSICAL [id number] NATY COLIN JR NEUROLOGIC: No migraines or seizures. PSYCHIATRIC: Denies depression or melancholia. PHYSICAL EXAMINATION: VITAL SIGNS: Temperature 98.8, pulse 93, respirations 26, blood pressure 117/71. GENERAL: He does not appear to be in acute distress right now. He has supplemental oxygen in place. SKIN: Warm and dry. HEENT: Grossly within normal limits. NECK: Supple. HEART: Regular rate and rhythm. LUNGS: Diminished breath sounds, more in the right base than the left. ABDOMEN: Soft, flat, nontender. EXTREMITIES: Trace to 1+ edema. LABORATORY DATA: CBC with a white count of 6800, hemoglobin 6.6, hematocrit 21.4, platelets number 222. Sodium 137, potassium 4.0, chloride 103, CO2 26.7, BUN 30, creatinine 1.6, glucose 169, calcium 10.7. Liver functions are normal. INR 1.77, troponin 0.106. ProBNP 8507. Chest x-ray, worsening right lower lobe pneumonia with moderate pleural effusion. ASSESSMENT: 1. 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 2. Worsening shortness of breath. 3. Worsening right lower lobe pneumonia. 4. Elevated troponin. PLAN: Dr. Mora has been consulted. Cardiology has been consulted. He is started on antibiotics. He is being transfused with a couple units of blood today. We will probably consult pulmonology tomorrow. Other tests and procedures as warranted. TRANSINT:[id number] Voice Confirmation ID: [id number] DOCUMENT ID: [id number] SYD FREY MD at 0820 CC: [id number] DICTATION DATE: 11/30/192327 FUNERAL GREETER: 12/01/19 0214 ADM IN [facility] [id number] [place] [address]
[2019-12-01 09:08] LABS: BASOPHILS 0.6 % (0-2); EOSINOPHILS 2.2 % (0-7); HEMATOCRIT 24.8 % (42.0-54.0); IMMATURE GRANULOCYTES 0.2 % (0-5); LYMPHOCYTES 22.5 % (15-50); MCHC 32.3 g/dL (31.0-37.0); MEAN PLATELET VOLUME 8.7 fL (7.4-10.4); MONOCYTES 9.1 % (2-11); NEUTROPHILS 65.4 % (40-80); RBC 2.86 10x6/uL (4.20-6.10); RDW 15.4 % (11.5-14.5); WBC 6.3 10x3/uL (4.8-10.8)
[2019-12-01 09:09] LABS: MCV 86.7 fL (80.0-100.0); PLATELET COUNT 177 10x3/uL (130-400)
[2019-12-01 09:37] LABS: ALBUMIN 3.5 g/dL (3.4-5.0); ALKALINE PHOSPHATASE 152 U/L (30-120); ALT (SGPT) 29 U/L (10-68); BILIRUBIN - TOTAL 1.41 mg/dL (0.2-1.3); CALCIUM 10.1 mg/dL (8.5-10.1); CARBON DIOXIDE 24.3 mmol/L (21.0-32.0); CHLORIDE - SERUM 102 mmol/L (98-107); CREATINE KINASE 150 UL (21-232); CREATININE - SERUM 1.4 mg/dL (0.6-1.3); POTASSIUM - SERUM 3.9 mmol/L (3.5-5.1); PROTEIN - SERUM 6.5 g/dL (6.4-8.2); SODIUM 136 mmol/L (136-145); UREA NITROGEN 24 mg/dL (7-18); eGFR NON AFRICAN AMERICAN 52 mL/min (90-120)
[2019-12-01 09:39] LABS: CALC OSMOLALITY 275 mosm/kg (275-300); GLUCOSE 103 mg/dL (74-106); TROPONIN-I 0.115 ng/mL (0.000-0.060)
[2019-12-01 11:00] VITALS: BP 106/70
[2019-12-01 12:26] VITALS: Ht 180.3 cm; Wt 81.1 kg
[2019-12-01 15:00] VITALS: BP 112/66
--- NOTE | 2019-12-01 16:09 | NUR ---
CALLED DR SALAZAR WITH PATIENTS REQUEST FOR CRACKERS, PATIENT STATED HE WAS STARVING AND COULD FEEL HIMSELF LOSING WEIGHT AND IF HE COULD HAVE 2 PACKAGES OF CRACKERS THAT HE WOULD NOT ASK FOR ANYTHING ELSE BEFORE HIS COLONOSCOPY [place]. DR SALAZAR STATED TO LET HIM HAVE THE CRACKERS. 2 PACKEGES AND GLASS OF ICE WATER GIVEN TO PATIENT.
--- NOTE | 2019-12-01 19:30 | NUR ---
PT SETTING IN CHAIR, AAO X 3, RESP EVEN AND UNLABORED. NO DISTRESS NOTED, CL IN REACH.
[2019-12-01 20:00] VITALS: BP 120/68
[2019-12-02] VITALS: BP 130/74
[2019-12-02 04:00] VITALS: BP 104/66
[2019-12-02 08:00] VITALS: BP 114/68
[2019-12-02 11:00] VITALS: BP 128/62
[2019-12-02 16:19] VITALS: BP 125/70
[2019-12-02 19:30] VITALS: BP 109/68
[2019-12-03 00:32] VITALS: BP 107/61
[2019-12-03 06:36] VITALS: BP 110/64
[2019-12-03 08:30] VITALS: BP 123/82
--- NOTE | 2019-12-03 09:28 | NUR ---
RESTING IN BED, NO DISTRESS NOTED, SL IN PLACE, O2 PER NC, CONT TO MONITOR SUGARS AND RESP STATUS
[2019-12-03 11:30] VITALS: BP 113/60
[2019-12-03 15:30] VITALS: BP 113/72
--- NOTE | 2019-12-03 19:30 | NUR ---
PT SETTING UP ON SIDE OF BED, AAO X 3, RESP EVEN AND UNLABORED. NO DISTRESS NOTED,CL IN REACH, SR UP X2.
[2019-12-03 20:00] VITALS: BP 120/72
[2019-12-04] VITALS (7 sets, daily range): BP systolic 110–122; BP diastolic 62–88
--- NOTE | 2019-12-04 00:21 | NUR ---
I have reviewed this patient and I concur with the Shift Assessment completed by the Licensed Practical Nurse today this shift.
--- NOTE | 2019-12-04 07:20 | NUR ---
RECIEVE REPORT. RESTING IN BED WITH EYES CLOSED. AROUSES TO STIMULI EASILY. CONSENTS FOR THORACENTESIS SIGNED ON CHART. DENIES ANY NEEDS. CONTINUE PLAN OF CARE AND SAFETY PRECAUTIONS.
[2019-12-04 10:46] LABS: PROTEIN - BODY FLUID 1.8 G/DL
[2019-12-04 11:22] LABS: NEUT - BF 13 %
[2019-12-04 11:23] LABS: MACROPHAGES BF 18 %
[2019-12-05 04:00] VITALS: BP 109/66
--- NOTE | 2019-12-05 07:20 | NUR ---
RECIEVE REPORT. SITTING UP ON SIDE OF BED. ALERT AND ORIENTED X4. DENIES PAIN OR SOB. DENIES ANY NEEDS AT THIS TIME. CONTINUE PLAN OF CARE AND SAFETY PRECAUTIONS.
[2019-12-05 08:00] VITALS: BP 114/65
[2019-12-05 11:00] VITALS: BP 103/56
--- NOTE | 2019-12-05 12:32 | NUR ---
Nutrition Follow-up: Pt reports eating <=50% of breakfast this AM. Thoracentesis yesterday (-1.6 L). GI signed off. Diet: Cardiac Wt: 175# (11/30) Last BM: 12/04 Labs noted: Glu 113 Meds noted: Glucotrol -Change to cardiac carb consistent diet. -Encourage PO intake and honor food preferences within diet restrictions. -Monitor wt. -RD following.
[2019-12-05 15:00] VITALS: BP 108/67
--- NOTE | 2019-12-05 17:13 | MORECARE ---
CASE MANAGEMENT DISCHARGE SUMMARY PATIENT: NATY COLIN JR UNIT: [id number] ADM DATE: 11/30/19 AGE: 79 : 44 SEX: M ROOM/BED: D.2106 AUTHOR: MOJGAN MUIR PHYSICIAN: REFERRING PHYSICIAN: SYD FREY MD DATE OF SERVICE: 12/05/19 Discharge Plan Patient Name: NATY COLIN Facility: [facility]:[place] : 1940 Planned Disposition: Home Health Service Anticipated Discharge Date: Discharge Date: Expected LOS: 0 Initial Reviewer: [email or web address] Initial Review Date: 11/30/2019 Generated: 12/05/19 6:12 pm Comments DCP- Discharge Planning Updated by [email or web address]: Lilibeth Richardson on 12/05/19 4:[address] CM met with patient to discuss initial discharge planning. Patient is in agreement to proceed with the assessment. Patient reports that he lives at home alone, independently. Patient is alert/oriented. PCP: Dr. Staci Rhodes, Dr. Frey. Pharmacy: [facility]. HHS: [facility]. DME: Nebulizer, Home and portable O2. Emergency contact: Scotty Zuniga (friends) [phone]. 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 CM discussed the availability of HH, Rehab, SNF, OP Therapy, DME services. Patient feels safe returning to previous environment. Patient denies hospitalization within the past 30 days. Patient denies the use of community resources MINERAL ORE PROCESSING LABOURER. Transportation at time of discharge: Friends. Patient is not inclined to answer questions. States "you can't make me go anywhere if I don't want to". Patient advised that CM is only attempting to complete a DC plan and not trying to sent him anywhere. DCPIA - Discharge Planning Initial Assessment Updated by [email or web address]: Lilibeth Richardson on 12/05/19 5:09 pm * Is the patient Alert and Oriented? Yes * PCP Staci Rhodes APRN, with Dr. Frey's office. * Pharmacy [facility] * Preadmission Environment Home Alone * ADLs Independent * Equipment Nebulizer Oxygen * Other Equipment Portable O2 * List name and contact numbers for known caregivers / representatives who currently or will assist patient after discharge: Galen Dong (friends) [phone] * Verbal permission to speak to the caregivers and representatives has been obtained from the patient. N/A * Community resources currently utilized None * Additional services required to return to the preadmission environment? Yes * Can the patient safely return to the preadmission environment? Yes * Has this patient been hospitalized within the prior 30 days at any hospital? No Patient Name: NATY OCLIN Page [id number] at 1713 All edits/amendments must be made on the electronic document DICTATION DATE: 12/05/191712 REHABILITATION SERVICES DIRECTOR: KARISSA 12/05/191712 RPT#: [id number] DC DATE: STATUS: ADM IN [facility] [address] [place] [address] END OF REPORT
--- NOTE | 2019-12-05 19:00 | NUR ---
EVENING ROUNDS COMPLETE. PT SITTING ON SIDE OF BED. AAOX4. NO SIGNS OF DISTRESS. PT DENIES ANY PAIN OR NEEDS AT THIS TIME. CL IN REACH, BED IN LOWEST POSITION.
[2019-12-05 20:00] VITALS: BP 110/71
[2019-12-06 00:59] VITALS: BP 99/62
[2019-12-06 05:11] VITALS: BP 111/62
--- NOTE | 2019-12-06 07:00 | NUR ---
RECEIVED REPORT. ASSUMED CARE OF PATIENT. CALL LIGHT WITHIN REACH. PATIENT RESTING IN BED WITH EYES CLOSED. EASILY AROUSED. BEDSIDE SHIFT REPORT COMPLETE. WHITE BOARD UPDATED. NO DISTRESS.
[2019-12-06 07:45] LABS: CREATININE - SERUM 1.3 mg/dL (0.6-1.3); VANCOMYCIN - TROUGH 23.6 ug/mL (10.0-20.0)
[2019-12-06 08:00] VITALS: BP 124/80
[2019-12-06 09:07] LABS: BASOPHILS 0.7 % (0-2); EOSINOPHILS 3.9 % (0-7); HEMATOCRIT 24.9 % (42.0-54.0); HEMOGLOBIN 7.7 g/dL (13.5-17.5); IMMATURE GRANULOCYTES 0.2 % (0-5); LYMPHOCYTES 15.3 % (15-50); MCH 27.6 pg (26.0-34.0); MCHC 30.9 g/dL (31.0-37.0); MCV 89.2 fL (80.0-100.0); MEAN PLATELET VOLUME 8.9 fL (7.4-10.4); MONOCYTES 10.7 % (2-11); NEUTROPHILS 69.2 % (40-80); PLATELET COUNT 166 10x3/uL (130-400); RBC 2.79 10x6/uL (4.20-6.10); RDW 15.5 % (11.5-14.5); WBC 5.7 10x3/uL (4.8-10.8)
--- NOTE | 2019-12-06 10:42 | MORECARE ---
CASE MANAGEMENT DISCHARGE SUMMARY PATIENT: NATY COLIN JR UNIT: [id number] ADM DATE: 11/30/19 AGE: 79 : 42 SEX: M ROOM/BED: D.2106 AUTHOR: MOJGAN MUIR PHYSICIAN: REFERRING PHYSICIAN: SYD FREY MD DATE OF SERVICE: 12/06/19 Discharge Plan Patient Name: NATY COLIN Facility: [facility]:[place] : 1940 Planned Disposition: Home Health Service Anticipated Discharge Date: Discharge Date: Expected LOS: 0 Initial Reviewer: [email or web address] Initial Review Date: 11/30/2019 Generated: 12/06/19 11:42 am Comments DCP- Discharge Planning Updated by [email or web address]: Lilibeth Richardson on 12/06/19 9:[address] Jeanne, with [facility] called for an update on patient. Patient is a client of [facility]. DC pending CXR and CBC results. DCP- Discharge Planning Updated by [email or web address]: Lilibeth Richardson on 12/05/19 4:[address] CM met with patient to discuss initial discharge planning. Patient is in agreement to proceed with the assessment. Patient reports that he lives at home alone, independently. Patient is alert/oriented. PCP: Dr. Staci Rhodes, Dr. Frey. Pharmacy: [place]. HHS: [facility]. DME: Nebulizer, Home and portable O2. Emergency contact: Scotty Zuniga (friends) [phone]. 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 CM discussed the availability of HH, Rehab, SNF, OP Therapy, DME services. Patient feels safe returning to previous environment. Patient denies hospitalization within the past 30 days. Patient denies the use of community resources TRIAL JUDGE. Transportation at time of discharge: Friends. Patient is not inclined to answer questions. States "you can't make me go anywhere if I don't want to". Patient advised that CM is only attempting to complete a DC plan and not trying to sent him anywhere. DCPIA - Discharge Planning Initial Assessment Updated by [email or web address]: Lilibeth Richardson on 12/05/19 5:09 pm * Is the patient Alert and Oriented? Yes * PCP Staci Rhodes APRN, with Dr. Frey's office. * Pharmacy [facility] * Preadmission Environment Home Alone * ADLs Independent * Equipment Nebulizer Oxygen * Other Equipment Portable O2 * List name and contact numbers for known caregivers / representatives who currently or will assist patient after discharge: Galen Dong (friends) [phone] * Verbal permission to speak to the caregivers and representatives has been obtained from the patient. N/A * Community resources currently utilized None * Additional services required to return to the preadmission environment? Yes * Can the patient safely return to the preadmission environment? Yes * Has this patient been hospitalized within the prior 30 days at any hospital? No Last DP export: 12/05/19 4:13 pm Patient Name: NATY COLIN Page [id number] at 1042 All edits/amendments must be made on the electronic document DICTATION DATE: 12/06/19 1042 CAD DRAFTSMAN: KARISSA 12/06/19 1042 RPT#: [id number] DC DATE: STATUS: ADM IN [facility] [address] [place] [address] END OF REPORT
[2019-12-06 11:00] VITALS: BP 117/69
--- NOTE | 2019-12-06 12:04 | NUR ---
FSBS 156. 2 UNITS HUMULIN ADMINISTERED PER SLIDING SCALE.
[2019-12-06 15:00] VITALS: BP 108/63
--- NOTE | 2019-12-06 16:23 | NUR ---
I CALLED CHANDRA AT DR FREY OFFICE TO LET THEM KNOW THAT DR GALEANO STATES PATIENT CAN BE DISCHARGED. SHE STATES THAT SHE WILL LET DR FREY KNOW.
--- NOTE | 2019-12-06 16:41 | NUR ---
PATIENT REFUSED HIS FSBS AND ALL MEDICATIONS AT THIS TIME. PATIENT STATES HE IS TIRED OF BEING A PIN CUSHION AND NOBODY HAS DONE ANYTHING FOR HIM FOR THE 3 WEEKS THAT HE HAS BEEN IN HERE. PATIENT SLAMMED HIS HANDS AND ARMS DOWN ON HIS BEDSIDE TABLE AND STATES HE ISN'T TAKING ANYMORE INSULIN, PILLS, AND NOBODY IS POKING HIM ANY FURTHER. SPOKE WITH WEATHER STRIP MECHANIC AND SHE STATES SHE HAS ALREADY PLACED A CALL TO OFFICE AND WE ARE WAITING TO SEE IF IS GOING TO GIVE US DISCHARGE ORDERS OR NOT.
[2019-12-06 17:08] LABS: ACID FAST SMEAR Negative (()); AFB SPECIMEN PROCESSING Not Indicated (())
--- NOTE | 2019-12-06 17:40 | NUR ---
DR FREY ON PHONE AT THIS TIME FOR ORDERS TO GIVE BLOOD. STATES THAT HE WILL PLACE THE ORDER. HE ASKED THAT I TRANSFER THE CALL INTO THE PATIENT'S ROOM SO HE CAN TELL THE PATIENT.
--- NOTE | 2019-12-06 19:00 | NUR ---
REPORT RECEIVED, WILL CONTINUE POC. PATIENT SITTING UP AT BEDSIDE. NO S/S OF DISTRESS OBSERVED, RR EVEN AND UNLOCKED ON 2L O2 VIA NC. PATIENT DENIES NEEDS AT THIS TIME. WAITING TO RECIEVE TYPE AND CROSS AND BLOOD TO ADMINISTER THE 1 UNIT OF PRBC. PATIENT IS TO BE DC'D AFTER BLOOD. CL IN REACH, BED LOCKED AND LOWERED. WILL CTM.
[2019-12-06 20:00] VITALS: BP 108/55
[2019-12-07] VITALS: BP 121/62
[2019-12-07 04:00] VITALS: BP 120/68
--- NOTE | 2019-12-07 04:04 | NUR ---
I have reviewed this patient and I concur with the Shift Assessment completed by the Licensed Practical Nurse today this shift.
--- NOTE | 2019-12-07 09:35 | MORECARE ---
CASE MANAGEMENT DISCHARGE SUMMARY PATIENT: NATY COLIN JR UNIT: [id number] ADM DATE: 11/30/19 AGE: 79 : 42 SEX: M ROOM/BED: D.2106 AUTHOR: ISADOAR,DOC PHYSICIAN: REFERRING PHYSICIAN: SYD FREY MD DATE OF SERVICE: 12/07/19 Discharge Plan Patient Name: NATY COLIN Facility: [facility]:[place] : 1940 Planned Disposition: Home Health Service Anticipated Discharge Date: Discharge Date: 12/07/2019 Expected LOS: 0 Initial Reviewer: [email or web address] Initial Review Date: 11/30/2019 Generated: 12/07/19 10:34 am Comments DCP- Discharge Planning Updated by [email or web address]: Lilibeth Richardson on 12/06/19 9:[address] Jeanne, with [facility] called for an update on patient. Patient is a client of [facility]. DC pending CXR and CBC results. DCP- Discharge Planning Updated by [email or web address]: Lilibeth Richardson on 12/05/19 4:[address] CM met with patient to discuss initial discharge planning. Patient is in agreement to proceed with the assessment. Patient reports that he lives at home alone, independently. Patient is alert/oriented. PCP: Dr. Staci Rhodes, Dr. Frey. Pharmacy: [facility]. HHS: [facility]. DME: Nebulizer, Home and portable O2. Emergency contact: Macey and Indio Zuniga (friends) [phone]. 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 CM discussed the availability of HH, Rehab, SNF, OP Therapy, DME services. Patient feels safe returning to previous environment. Patient denies hospitalization within the past 30 days. Patient denies the use of community resources SR ACCOUNT EXECUTIVE. Transportation at time of discharge: Friends. Patient is not inclined to answer questions. States "you can't make me go anywhere if I don't want to". Patient advised that CM is only attempting to complete a DC plan and not trying to sent him anywhere. DCPIA - Discharge Planning Initial Assessment Updated by [email or web address]: Lilibeth Richardson on 12/05/19 5:09 pm * Is the patient Alert and Oriented? Yes * PCP Staci Rhodes APRN, with Dr. Frey's office. * Pharmacy [facility] * Preadmission Environment Home Alone * ADLs Independent * Equipment Nebulizer Oxygen * Other Equipment Portable O2 * List name and contact numbers for known caregivers / representatives who currently or will assist patient after discharge: Galen Dong (friends) [phone] * Verbal permission to speak to the caregivers and representatives has been obtained from the patient. N/A * Community resources currently utilized None * Additional services required to return to the preadmission environment? Yes * Can the patient safely return to the preadmission environment? Yes * Has this patient been hospitalized within the prior 30 days at any hospital? No Last DP export: 12/06/19 9:42 am Patient Name: NATY COLIN Page [id number] at 0935 All edits/amendments must be made on the electronic document DICTATION DATE: 12/07/19933 COLON THERAPIST: KARISSA 12/07/19933 RPT#: [id number] DC DATE:12/07/19 STATUS: DIS IN [facility] [address] [place] [address] END OF REPORT
[2019-12-07 10:12] LABS: FUNGUS STAIN Final report (())
--- NOTE | 2019-12-07 17:06 | MORECARE ---
CASE MANAGEMENT DISCHARGE SUMMARY PATIENT: NATY COLIN JR UNIT: [id number] ADM DATE: 11/30/19 AGE: 79 : 42 SEX: M ROOM/BED: D.2106 AUTHOR: ISADORA,DOC PHYSICIAN: REFERRING PHYSICIAN: SYD FREY MD DATE OF SERVICE: 12/07/19 Discharge Plan Patient Name: NATY COLIN Facility: [facility]:[place] : 1940 Planned Disposition: Home Health Service Anticipated Discharge Date: 12/07/19 Discharge Date: 12/07/2019 Expected LOS: 7 Initial Reviewer: [email or web address] Initial Review Date: 11/30/2019 Generated: 12/07/19 6:06 pm Comments DCP- Discharge Planning Updated by [email or web address]: Lilibeth Richardson on 12/07/19 4:[address] CM faxed required documents to [facility], Attn: Jeanne Kent. DCP- Discharge Planning Updated by [email or web address]: Lilibeth Richardson on 12/06/19 9:[address] Jeanne, with [facility] called for an update on patient. Patient is a client of [facility]. DC pending CXR and CBC results. DCP- Discharge Planning Updated by [email or web address]: Lilibeth Richardson on 12/05/19 4:[address] CM met with patient to discuss initial discharge planning. Patient is in agreement to proceed with the assessment. Patient reports that he lives at home alone, independently. Patient is alert/oriented. PCP: Dr. Staci Rhodes, Dr. Frey. Pharmacy: [facility]. HHS: [facility]. DME: Nebulizer, Home and portable O2. Emergency contact: Scotty Zuniga (friends) [phone]. 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 CM discussed the availability of HH, Rehab, SNF, OP Therapy, DME services. Patient feels safe returning to previous environment. Patient denies hospitalization within the past 30 days. 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 Transportation at time of discharge: Friends. Patient is not inclined to answer questions. States "you can't make me go anywhere if I don't want to". Patient advised that CM is only attempting to complete a DC plan and not trying to sent him anywhere. DCPIA - Discharge Planning Initial Assessment Updated by [email or web address]: Lilibeth Richardson on 12/05/19 5:09 pm * Is the patient Alert and Oriented? Yes * PCP Staci Rhodes APRN, with Dr. Frey's office. * Pharmacy [facility] * Preadmission Environment Home Alone * ADLs Independent * Equipment Nebulizer Oxygen * Other Equipment Portable O2 * List name and contact numbers for known caregivers / representatives who currently or will assist patient after discharge: Galen Dong (friends) [phone] * Verbal permission to speak to the caregivers and representatives has been obtained from the patient. N/A * Community resources currently utilized None * Additional services required to return to the preadmission environment? Yes * Can the patient safely return to the preadmission environment? Yes * Has this patient been hospitalized within the prior 30 days at any hospital? No External Providers External Provider: [facility] Next Contact Date: Service Request Date: Service Type: Resolution: Reviewer: Comments: Last DP export: 12/07/19 8:35 am Patient Name: NATY COLIN Page [id number] at 1706 All edits/amendments must be made on the electronic document DICTATION DATE: 12/07/191705 SHOT TUBE MACHINE TENDER: KARISSA 12/07/191705 RPT#: [id number] DC DATE:12/07/19 STATUS: DIS IN [facility] [address] [place] [address] END OF REPORT
== END 2019-12-07 06:57 | disposition home health service (06) | DRG 377 ==
LOC: D.ER 10:17 → D.M2 12:22
PROVIDERS: Family Medicine; Internal Medicine Pulmonary Disease; Radiology Diagnostic Radiology; ADMIT Family Medicine; ATTEND Family Medicine
PROC: 0DBM8ZZ Excision of Descending Colon, Via Natural or Artificial Opening Endoscopic (ICD-10-PCS; 2019-12-02)
PROC: 0W993ZZ Drainage of Right Pleural Cavity, Percutaneous Approach (ICD-10-PCS; principal; 2019-12-04 09:55)
DX: K92.2 Gastrointestinal hemorrhage, unspecified (principal); J18.9 Pneumonia, unspecified organism; D62 Acute posthemorrhagic anemia; N17.9 Acute kidney failure, unspecified; I12.9 Hypertensive chronic kidney disease with stage 1 through stage 4 chronic kidney disease, or unspecified chronic kidney disease; N18.3 Chronic kidney disease, stage 3 (moderate); J44.9 Chronic obstructive pulmonary disease, unspecified; E11.22 Type 2 diabetes mellitus with diabetic chronic kidney disease; D63.1 Anemia in chronic kidney disease; Z86.73 Personal history of transient ischemic attack (TIA), and cerebral infarction without residual deficits; N40.0 Benign prostatic hyperplasia without lower urinary tract symptoms; E55.9 Vitamin D deficiency, unspecified; Z87.891 Personal history of nicotine dependence; J30.9 Allergic rhinitis, unspecified; K63.5 Polyp of colon; K64.1 Second degree hemorrhoids; K57.90 Diverticulosis of intestine, part unspecified, without perforation or abscess without bleeding